=== PATIENT | female | born 1960 | race Caucasian/White ===

== ENCOUNTER 2019-12-14 11:00 | Outpatient (CLI) | payer MEDICAID, SELFPAY ==
--- NOTE | 2019-12-14 11:09 | USCV_ITS ---
Krista Rutherford Age: 59 Gender: F : 1960 Exam Date: 12/14/2019 11:28 Ordering Phys: Jamie Kendall Technologist: Lloyd Renae [place] [facility] [place]: HX OF RT LEG DVT HISTORY: Patient has history of. DVT. PROCEDURES: Venous duplex imaging was performed in only the right lower extremity. The following venous structures were evaluated: common femoral vein, profunda vein, proximal portion of the greater saphenous vein, superficial femoral vein, and the popliteal vein. In addition, the posterior tibial and peroneal trunk were evaluated. On the right side, the common femoral, superficial femoral, profunda femoral, popliteal, posterior tibial, greater saphenous veins and the peroneal trunk were identified and interrogated in the standard fashion. These veins were found to be easily compressible with spontaneous blood flow. No evidence of insufficiency or thrombus noted. FINDINGS: Normal 2-D Doppler and augmentation and compressibility throughout the lower extremity venous structures. Additional imaging through the proximal calf veins also reveals no thrombus. Limited evaluation of the greater saphenous vein is patent with no thrombus.. CONCLUSIONS No evidence of right lower extremity DVT. Wes Costello MD (Electronically Signed) Final Date: 14 December 2019 17:14 S
== END 2019-12-14 11:01 | disposition home or self-care (01) ==
LOC: US 11:02
PROVIDERS: PCP Nurse Practitioner; Visit Provider Nurse Practitioner
DX: Z86.718 Personal history of other venous thrombosis and embolism (principal)
CPT/HCPCS: 93971

== ENCOUNTER 2023-08-14 12:08 | Emergency (ER) | payer MEDICAID, SELFPAY ==
[2023-08-14 12:28] VITALS: BP 176/111; PULSE 93; RESP 18; TEMP 36.6; O2SAT 99; BMI 47.5
--- NOTE | 2023-08-14 12:35 | XRR_ITS ---
PROCEDURE INFORMATION: Exam: XR Chest Exam date and time: 08/14/2023 12:53 PM Age: 63 years old Clinical indication: Shortness of breath TECHNIQUE: Imaging protocol: Radiologic exam of the chest. Views: 1 view. COMPARISON: No relevant prior studies available. FINDINGS: Lungs: Well-defined focal opacity in the lateral left middle lung field, measuring up to 1.4 cm. No focal consolidation. Pleural spaces: No large pleural effusion. No pneumothorax. Heart/Mediastinum: Cardiomediastinal silhouette is midline and normal in size. Bones/joints: No acute osseous findings. XR/XR chest 1V [id number] IMPRESSION: Well-defined focal opacity in the lateral left middle lung field, measuring up to 1.4 cm. This likely represents a calcified granuloma. Recommend nonemergent CT chest without contrast for further evaluation.
--- NOTE | 2023-08-14 12:36 | W.ED.SOB ---
HPI - SOB/Dyspnea General: Chief Complaint: Shortness of Breath/Dyspnea Stated Complaint: weakness, dizzy, nausea Time Seen by Provider: 08/14/23 12:16 History of Present Illness: HPI Narrative: 63-year-old female with a history of obesity, diabetes, hypertension and tobacco dependence who presents to the emergency room with weakness and shortness of breath. She says she has been sick for several weeks now. She started out with a cough and had some fevers initially. She was seen by her PCP and she said she got some shots including a B12 shot. She said she was told that she did not get better to come here. She says her cough is improved but she gets very short of breath when she tries to stand up or walk. She feels very weak all over. Nothing focal. No chest pain. No abdominal pain. No nausea or vomiting. Review of Systems Narrative: Constitutional symptoms: Negative except as documented in HPI. Skin symptoms: Negative except as documented in HPI. Eye symptoms: Negative except as documented in HPI. ENMT symptoms: Negative except as documented in HPI. Respiratory symptoms: Negative except as documented in HPI. Cardiovascular symptoms: Negative except as documented in HPI. Gastrointestinal symptoms: Negative except as documented in HPI. Genitourinary symptoms: Negative except as documented in HPI. Musculoskeletal symptoms: Negative except as documented in HPI. Neurologic symptoms: Negative except as documented in HPI. Psychiatric symptoms: Negative except as documented in HPI. Endocrine symptoms: Negative except as documented in HPI. Physical Exam Narrative: EXAM NARRATIVE: General: Alert, no acute distress. Skin: Warm, dry. Head: Normocephalic, atraumatic. Neck: Supple, trachea midline. Eye: Extraocular movements are intact. Ears, nose, mouth and throat: mucosa moist. Cardiovascular: Regular, Normal peripheral perfusion. Respiratory: Patient becomes quite thick With any exertion, some mild scattered wheeze, no increased work of breathing at rest, breath sounds are equal, Symmetrical chest wall expansion. Gastrointestinal: Soft, Nontender, Non distended, Normal bowel sounds. Musculoskeletal: Normal ROM, no deformity. Neurological: Alert and oriented, No focal neurological deficit observed. Psychiatric: Cooperative, appropriate mood & affect. Course Vital Signs: Vital signs: Vital Signs Temperature 97.9 F 08/14/23 12:28 Pulse Rate 101 H 08/14/23 13:01 Respiratory Rate 18 08/14/23 13:01 Blood Pressure 159/91 08/14/23 13:01 Pulse Oximetry 95 08/14/23 13:01 Oxygen Delivery Me thod Room Air 08/14/23 13:01 MDM - SOB/Dyspnea Medical Decision Making Medical decision making: Differential diagnosis including but not limited to and based on the above HPI, review of systems and physical exam: Pneumonia, viral upper respiratory illness, heart failure, undiagnosed COPD Orders to evaluate differential diagnosis: EKG, chest x-ray, flu and COVID swabs, basic lab work. proBNP. Troponin. Lab Review: Laboratory results were reviewed and interpreted by myself the emergency room physician. No leukocytosis. White count is 6. Hemoglobin is 15. BUN and creatinine are slightly elevated at 13 and 1 over her baseline. Her glucose is 514. This is being treated with fluids and insulin. Urinalysis shows UTI. She is being given Rocephin. Chest x-ray: Stable calcified nodule in the left lateral lung. No acute process. No infiltrate. No pneumothorax. No cardiomegaly. This was reviewed and interpreted by myself the ER physician. EKG: Time 1309 p.m. rate 86 normal sinus rhythm, nonspecific ST-T changes, no ectopy, normal WI & QRS intervals, This was reviewed and interpreted by myself the ER physician at 1315 p.m. Reexamination: Patient remained stable. She is in no acute distress. No increased work of breathing while at rest. Believe her weakness is probably secondary to hyperglycemia, dehydration and a urinary tract infection. Multifactorial. Lab Data 08/14/23 12:50 08/14/23 12:50 Labs/Radiology: Radiology Impressions Chest X-Ray 08/14/23 12:35 IMPRESSION: Well-defined focal opacity in the lateral left middle lung field, measuring up to 1.4 cm. This likely represents a calcified granuloma. Recommend nonemergent CT chest without contrast for further evaluation. Laboratory Results WBC 6.20 10^3/uL (3.29-11.43) 08/14/23 12:50 RBC 4.93 10^6/uL (3.85-5.65) 08/14/23 12:50 Hgb 15.60 g/dL (11.27-16.99) 08/14/23 12:50 Hct 47.4 % (36-47) H 08/14/23 12:50 MCV 96.1 fl (85-98) 08/14/23 12:50 MCH 31.6 pg (27-33) 08/14/23 12:50 MCHC 32.9 g/dL (30-55) 08/14/23 12:50 RDW 14.9 % (12.1-15.1) 08/14/23 12:50 Plt Count 132 10^3/cmm (157-399) L 08/14/23 12:50 MPV 11.6 fL (7.4-10.4) H 08/14/23 12:50 Neut % (Auto) 73.0 % 08/14/23 12:50 Lymph % (Auto) 15.6 % 08/14/23 12:50 [place] % (Auto) 9.0 % 08/14/23 12:50 Eos % (Auto) 0.0 % 08/14/23 12:50 Baso % (Auto) 0.8 % 08/14/23 12:50 Neut # (Auto) 4.52 10^3/uL (1.8-7.7) 08/14/23 12:50 Lymph # (Auto) 1.0 10^3/uL (0.8-4.8) 08/14/23 12:50 [place] # (Auto) 0.6 10^3/uL (0.2-0.9) 08/14/23 12:50 Eos # (Auto) 0.0 10^3/uL (0.0-0.8) 08/14/23 12:50 Baso # (Auto) 0.1 10^3/uL (0.0-0.1) 08/14/23 12:50 Nucleated RBC % (auto) 0 % 08/14/23 12:50 Nucleated RBCs # 0.0 /100WBC 08/14/23 12:50 Sodium 131 mmol/L (136-145) L 08/14/23 12:50 Potassium 4.8 mmol/L (3.5-5.1) 08/14/23 12:50 Chloride 89 mmol/L (98-107) L 08/14/23 12:50 Carbon Dioxide 11 mmol/L (22-29) L 08/14/23 12:50 Anion Gap 35.8 (5-19) H 08/14/23 12:50 BUN 13 mg/dL (8-23) 08/14/23 12:50 Creatinine 1.0 mg/dL (0.5-0.9) H 08/14/23 12:50 GFR Calculation 56.2 mL/min (90-130) L 08/14/23 12:50 Glucose 514 mg/dL (65-115) H* 08/14/23 12:50 Calculated Osmolality 295 mOsm/kg (285-295) 08/14/23 12:50 Lactic Acid 1.7 mmol/L (0.5-2.2) 08/14/23 12:50 Calcium 9.5 mg/dL (8.5-10.5) 08/14/23 12:50 Total Bilirubin 0.3 mg/dL (0.15-1.2) 08/14/23 12:50 AST 9 U/L (0-32) 08/14/23 12:50 ALT 12 U/L (0-33) 08/14/23 12:50 Alkaline Phosphatase 120 U/L (35-105) H 08/14/23 12:50 Troponin T Baseline 23 ng/L (0-10) H 08/14/23 12:50 C-Reactive Protein 5.8 mg/L (0.0-4.9) H 08/14/23 12:50 NT-Pro-B Natriuret Pep 124 pg/mL (0-125) 08/14/23 12:50 Total Protein 6.8 g/dL (6.6-8.7) 08/14/23 12:50 Albumin 3.6 g/dL (3.5-5.2) 08/14/23 12:50 Globulin 3.2 g/dL (1.3-4.6) 08/14/23 12:50 Procalcitonin 0.05 ng/mL (0-0.5) 08/14/23 12:50 Urine Color Straw (Yellow) 08/14/23 14:10 Urine Appearance Clear (CLEAR) 08/14/23 14:10 Urine pH 5 (5-7) 08/14/23 14:10 Ur Specific [place] 1.010 (1.005-1.030) 08/14/23 14:10 Urine Protein 1+ (Negative) H 08/14/23 14:10 Urine Glucose (UA) 4+ (Normal) H 08/14/23 14:10 Urine Ketones 3+ (Negative) H 08/14/23 14:10 Urine Blood 2+ (Negative) H 08/14/23 14:10 Urine Nitrate Negative (Negative) 08/14/23 14:10 Urine Bilirubin Neg (Negative) 08/14/23 14:10 Urine Urobilinogen Norm mg/dL (Negative) 08/14/23 14:10 Ur Leukocyte Esterase Trace (Negative) H 08/14/23 14:10 Urine RBC 5-10 /hpf (0-2) H 08/14/23 14:10 Urine WBC 15-25 /hpf (0-5) H 08/14/23 14:10 Ur Squamous Epith Cells 5-10 /hpf (0-5) H 08/14/23 14:10 Amorphous Sediment Not Reportable 08/14/23 14:10 Urine Bacteria Trace /hpf (NONE) 08/14/23 14:10 Influenza Type A Ag negative (Negative) 08/14/23 12:55 Influenza Type B Ag negative (Negative) 08/14/23 12:55 SARS-CoV-2 Ag (Rapid) negative (Negative) 08/14/23 12:55 All radiology interpretation(s) finalized by discharge Other Data - 1 L normal saline bolus. -10 units IV insulin. -1 g IV Rocephin. - Discharged home - Discussed findings and plan with patient. Answered any questions. - All laboratory values were reviewed and interpreted personally by myself, the ER physician - All imaging was reviewed and interpreted personally by myself, the ER physician. - Evaluation and treatment of this problem were appropriate in the emergency setting Discharge Plan Discharge Patient Disposition: Home Clinical Impression: Urinary tract infection, Dehydration, Hyperglycemia Condition: Stable Prescriptions: New cefdinir 300 mg capsule 300 mg PO BID 10 Days Qty: 20 0RF No Action celecoxib 200 mg capsule 200 mg PO DAILY PRN (Reason: INFLAMMATION OR PAIN) pioglitazone 15 mg tablet 15 mg PO DAILY metformin 500 mg tablet 500 mg PO BID lisinopril 10 mg tablet 10 mg PO DAILY gabapentin 100 mg capsule 100 mg PO TID Novolog Mix 70-30FlexPen U-100 100 unit/mL (70-30) insulin pen See Rx Instructions .ROUTE .COMPLEX Rx Instructions: Take 30 units subcutaneously in the morning and 25 units in the evening at dinner. rosuvastatin 40 mg tablet 40 mg PO DAILY fenofibrate nanocrystallized 145 mg tablet 145 mg PO DAILY Lantus Solostar U-100 Insulin 100 unit/mL (3 mL) insulin pen 120 unit SUBCUT BEDTIME Eliquis 5 mg tablet 5 mg PO BID Discharge Orders: Discharge ED (Routine); Ordered 08/14/23 Ordered By: Monie Elizondo Referrals: Jamie Kendall, MERCHANDISE PLANNER [Primary Care Provider] - Patient Instructions: Urinary Tract Infection in Women (DC), Opioid Safety, Pain Management Coding Level of Care Code ED [employer] [facility] Gunsmith for Marta Alvarez
--- NOTE | 2023-08-14 12:48 | ECG_ITS ---
[facility] Test Date: 2023-08-14 Pat Name: Krista Rutherford Department: Room: Gender: Female Activity Specialist: : 1960 Requested By: Monie Lloyd Order Number: [id number] Ish MD: Sixto Flores M.D. Measurements Intervals [place] Rate: 86 P: 44 OR: 119 QRS: 41 QRSD: 76 T: 0 QT: 302 QTc: 363 Interpretive Statements SINUS RHYTHM WITH SINUS ARRHYTHMIA WITH SHORT OR INTERVAL NONSPECIFIC ST & T-WAVE ABNORMALITY No previous ECG available for comparison Electronically Signed On 08-14-2023 18:03:32 HAND CELL TUBER by Sixto Flores M.D. [email or web address].[email or web address]/store/OM/[id number]
[2023-08-14 13:01] VITALS: BP 159/91; PULSE 101; RESP 18; O2SAT 95
[2023-08-14 13:21] LABS: Basophils # 0.1 10^3/uL (0.0-0.1); Basophils % 0.8 %; Hematocrit 47.4 % (36-47); Lymphocytes % 15.6 %; Mean Corpuscular HGB Conc 32.9 g/dL (30-55); Mean Corpuscular Hemoglobin 31.6 pg (27-33); Mean Corpuscular Volume 96.1 fl (85-98); Mean Platelet Volume 11.6 fL (7.4-10.4); Monocytes # 0.6 10^3/uL (0.2-0.9); Neutrophils # 4.52 10^3/uL (1.8-7.7); Nucleated Red Blood Cells % 0 %; Platelet Count 132 10^3/cmm (157-399); Red Blood Count 4.93 10^6/uL (3.85-5.65); Red Cell Distribution Width 14.9 % (12.1-15.1)
[2023-08-14 13:40] LABS: Influenza A by IFA negative (Negative); Influenza B by IFA negative (Negative)
[2023-08-14 13:41] LABS: Lactic Sepsis W/Reflex 1.7 mmol/L (0.5-2.2)
[2023-08-14 13:41] LABS: SARS Covid-2 Antigen negative (Negative)
[2023-08-14 13:45] LABS: Troponin(5th) Baseline 23 ng/L (0-10)
[2023-08-14 13:55] LABS: NT Pro B Type Natriuretic Pept 124 pg/mL (0-125); Procalcitonin 0.05 ng/mL (0-0.5)
[2023-08-14 14:07] LABS: Alanine Aminotransferase 12 U/L (0-33); Albumin Level 3.6 g/dL (3.5-5.2); Alkaline Phosphatase 120 U/L (35-105); Anion Gap 35.8 (5-19); Aspartate Amino Transferase 9 U/L (0-32); Blood Urea Nitrogen 13 mg/dL (8-23); C Reactive Protein 5.8 mg/L (0.0-4.9); Calcium 9.5 mg/dL (8.5-10.5); Carbon Dioxide 11 mmol/L (22-29); Chloride 89 mmol/L (98-107); Globulin 3.2 g/dL (1.3-4.6); Glomerular Filtration Rate 56.2 mL/min (90-130); Osmolality Calculated 295 mOsm/kg (285-295); Potassium 4.8 mmol/L (3.5-5.1); Sodium 131 mmol/L (136-145); Total Bilirubin 0.3 mg/dL (0.15-1.2); Total Protein 6.8 g/dL (6.6-8.7)
[2023-08-14 14:11] LABS: Glucose 514 mg/dL (65-115)
[2023-08-14 14:28] LABS: Protein Urine 1+ (Negative); Urine Appearance Clear (CLEAR); Urine Color Straw (Yellow); pH Urine 5 (5-7)
[2023-08-14 14:29] LABS: Add Urine Culture? Yes; Bacteria Urine TRACE /hpf; Bilirubin Urine Neg (Negative); Blood Urine 2+ (Negative); Glucose Urine UA 4+ (Normal); Ketones Urine 3+ (Negative); Leukocyte Esterase Urine Trace (Negative); Nitrate Urine Negative (Negative); Urobilinogen Urine Norm (Negative); WBC Urine 15-25 /hpf (0-5)
[2023-08-14] MEDS: cefTRIAXone 1,000 MG in sodium chloride 0.9% (plus) 50 ML 100 MG IV (14:50)
[2023-08-14] MEDS: insulin regular-human 100 units/1 mL 10 UNIT IVP (14:50)
[2023-08-14] MEDS: sodium chloride 0.9% 1,000 ML 999 ML IV (14:50)
[2023-08-14 16:04] LABS: Troponin 5 2HR 22.93 ng/L (0-10)
[2023-08-14 16:05] LABS: Troponin 5 2HR Delta -0.07 ABS# (0-10)
== END 2023-08-14 15:51 | disposition home or self-care (01) ==
PROVIDERS: Emergency Provider Emergency Medicine; PCP Nurse Practitioner
DX: N39.0 Urinary tract infection, site not specified (principal); E86.0 Dehydration; E11.65 Type 2 diabetes mellitus with hyperglycemia; Z79.01 Long term (current) use of anticoagulants; Z79.4 Long term (current) use of insulin; Z79.84 Long term (current) use of oral hypoglycemic drugs; I10 Essential (primary) hypertension; F17.200 Nicotine dependence, unspecified, uncomplicated; Z11.52 Encounter for screening for COVID-19
CPT/HCPCS: 36415; 71045; 80053; 81001; 83605; 83880; 84145; 84484; 85025; 86140; 87040; 87086; 87426; 87804; 93005; 96365; 96375; 99285; J0696; J1815; J7030

== ENCOUNTER 2023-08-17 17:39 | Inpatient (IN) | payer MEDICAID, SELFPAY ==
[2023-08-17] VITALS (54 sets, daily range): BP systolic 103–167; BP diastolic 62–143; PULSE 107–111; RESP 17–22; TEMP 35.8–36.8; O2SAT 96–99; BMI 37.7
--- NOTE | 2023-08-17 17:50 | XRR_ITS ---
PROCEDURE INFORMATION: Exam: XR Chest Exam date and time: 08/17/2023 6:25 PM Age: 63 years old Clinical indication: Other: AMS TECHNIQUE: Imaging protocol: Radiologic exam of the chest. Views: 1 view. COMPARISON: CR (CHEST, ) 08/14/2023 12:53 PM FINDINGS: Lungs: There is a stable calcified granuloma overlying the left lateral mid lung zone. No consolidation is identified. There is a stable mild interstitial prominence which may be in part related to artifact. Pleural spaces: Unremarkable. No pleural effusion. No pneumothorax. Heart/Mediastinum: Unremarkable. No cardiomegaly. Bones/joints: Unremarkable. XR/XR chest 1V portable [id number] IMPRESSION: No acute cardiopulmonary disease.
--- NOTE | 2023-08-17 17:52 | ED_ITS ---
HPI - Altered Mental Status 2 General: Chief Complaint: Altered Mental Status Stated Complaint: AMS UTI Time Seen by Provider: 08/17/23 17:52 History of Present Illness: 63-year-old female presents to the emerg ency department with altered mental status she is accompanied by her family members and they state that they called the ambulance because she was very difficult to arouse her last known well time was yesterday at approximately 7 PM. Patient was hypoxic per EMS and placed on 4 L of supplemental oxygen. Per the family members they state that she has no history of home oxygen requirement. She is a diabetic and does appear to be breathing very fast. On review of the patient's medical records it does appear that she was seen here in the ER on 08/14/[address] Morocho and treated for dehydration and shortness of breath at that time. Given the patient's worsening medical condition today she is unable to provide any history of present illness. The family members state that she was seen by her primary care provider and had received some type of shots including a B12 shot and was advised by her primary care provider that if she did not get better to come to the emergency department which was documented on 08/14/2023. Review of Systems 2 General: Reports: ROS unobtainable due to medical condition and ROS unobtainable due to mental status Physical Exam 2 Narrative: Constitutional: the patient appears acutely ill, morbidly obese, alert alert only to person. Responsive to noxious stimuli. Head, eyes, ears, nose, mouth, throat: Normocephalic, atraumatic. Pupils-equal, round, reactive to light. No scleral icterus. Normal-appearing external ears. Normal appearing nasal turbinates, no drainage. No obvious oral lesions, posterior oropharynx without erythema or exudates. Neck: Supple, trachea is midline, no lymphadenopathy, no jugular venous distension, thyromegaly, or carotid bruits. Carotid upstrokes are brisk bilaterally. Lungs: Tachypneic, decreased bilaterally in the bases, the remainder of the lung vasquez are clear symmetrical rise and fall of chest, Cardiac: Sinus tachycardia with PACs noted., positive S1, S2. No murmurs, rubs or gallops that I can appreciate, brawny edema Abdomen: Soft, non-tender to palpation, normal active bowel sounds to all quadrants. No palpable masses, no organomegaly and abdominal bruits. Extremities: 2+ pulses in the upper extremities that are equal bilaterally, 2+ pulses in the lower extremities that are equal bilaterally. Brawny edema to the lower extremities moves all extremities well, sensation to all extremities are noted. Skin: Warm, dry, intact. Course 2 Vital Signs: Vital signs: Vital Signs Temperature 98.2 F 08/17/23 17:56 Pulse Rate 109 H 08/17/23 19:26 Respiratory Rate 17 08/17/23 19:26 Blood Pressure 125/96 08/17/23 20:30 Pulse Oximetry 98 08/17/23 20:30 Oxygen Delivery Me thod Room Air 08/17/23 19:26 Oxygen Flow Rate 4 08/17/23 17:56 MDM - Altered Mental Status Medical Decision Making Physical exam completed and documented, I will obtain POC glucose check and treat accordingly. I will obtain a chest x-ray and if indicated a CT scan of the head without contrast to evaluate for intracranial hemorrhage I have reviewed previous and pertinent medical records for assist in obtaining benefical medical information to improved the care and treatment of the patient. I have obtained a CBC and CMP as well as procalcitonin and lactic acid for concerns of infectious etiology [id number] glucose did demonstrate elevated blood glucose and her serum ketones are positive indicating diabetic ketoacidosis she does have a significant anion gap I will provide a bicarbonate drip as well as insulin push and insulin drip for her DKA. I have contacted the hospitalist physician for admission to the intensive care unit for the patient. I discussed the plan of care with the patient's son as her was not in the room and the family were in agreement with the plan of care. Medical Records I reviewed the patient's medical records. Lab Data I reviewed the patient's lab results. 08/17/23 18:23 08/17/23 18:53 Radiology Impressions Chest X-Ray 08/17/23 17:50 IMPRESSION: No acute cardiopulmonary disease. Head CT 08/17/23 19:01 IMPRESSION: Patchy deep white matter hypodensities are nonspecific though typical of small vessel chronic ischemic disease. Laboratory Results WBC 7.78 10^3/uL (3.29-11.43) 08/17/23 18:23 RBC 5.06 10^6/uL (3.85-5.65) 08/17/23 18:23 Hgb 16.20 g/dL (11.27-16.99) 08/17/23 18: Hct 54.3 % (36-47) H 08/17/23 18: MCV 107.3 fl (85-98) H 08/17/23 18:23 MCH 32.0 pg (27-33) 08/17/23 18: MCHC 29.8 g/dL (30-55) L 08/17/23 18: RDW 15.4 % (12.1-15.1) H 08/17/23 18: Plt Count 14 10^3/cmm (157-399) L* 08/17/23 18: MPV Not Reportable 08/17/23 18: Neut % (Auto) 81.3 % 08/17/23 18: Lymph % (Auto) 6.3 % 08/17/23 18: [place] % (Auto) 8.2 % 08/17/23 18: Eos % (Auto) 0.0 % 08/17/23 18: Baso % (Auto) 0.9 % 08/17/23 18: Neut # (Auto) 6.32 10^3/uL (1.8-7.7) 08/17/23 18: Lymph # (Auto) 0.5 10^3/uL (0.8-4.8) L 08/17/23 18: [place] # (Auto) 0.6 10^3/uL (0.2-0.9) 08/17/23 18: Eos # (Auto) 0.0 10^3/uL (0.0-0.8) 08/17/23 18: Baso # (Auto) 0.1 10^3/uL (0.0-0.1) 08/17/23: Nucleated RBC % (auto) 0.3 % 08/17/23: Nucleated RBCs # 0.0 /100WBC 08/17/23 18: Specimen Type Arterial 08/17/23 19:21 Sample Site Brachial, right 08/17/23 19:21 ABG pH 7.09 (7.35-7.45) L* 08/17/23 19: ABG pCO2 16.3 mmHg (35-45) L* 08/17/23 19:21 ABG pO2 112.0 mmHg (80.0-100.0) H 08/17/23 19:21 ABG HCO3 4.9 mmol/L (22-26) L 08/17/23 19:21 ABG O2 Saturation 98.4 08/17/23 19:21 ABG Base Excess -22.7 mmol/L (-2.0-2.0) L 08/17/23 19:21 Darci Test N/a 08/17/23 19:21 A-a O2 Gradient 1.7 mmHg (5-10) L 08/17/23 19:21 Hematocrit 53.0 % (37-47) H 08/17/23 19:21 Hgb O2 Saturation 97.0 % (95-100) 08/17/23 19:21 Carboxyhemoglobin 0.9 %THgb (0.4-20.1) 08/17/23 19:21 Methemoglobin 0.5 % (0.4-1.5) 08/17/23 19:21 Total Hemoglobin 17.3 g/dL (12-16) H 08/17/23 19:21 Sodium 145.0 mmol/L (131-143) H 08/17/23 19:21 Potassium 4.8 mmol/L (3.5-5.0) 08/17/23 19:21 Glucose 568.0 mg/dL (70-115) H 08/17/23 19:21 Ionized Calcium 1.6 mmol/L (1.1-1.4) H 08/17/23 19:21 O2 Delivery Device Room air 08/17/23 19:21 Grocery Store Manager ID [email or web address] 08/17/23 19:21 Sodium 140 mmol/L (136-145) 08/17/23 18:53 Potassium 4.7 mmol/L (3.5-5.1) 08/17/23 18:53 Chloride 101 mmol/L (98-107) 08/17/23 18:53 Carbon Dioxide 8 mmol/L (22-29) L* 08/17/23 18:53 Anion Gap 35.7 (5-19) H 08/17/23 18:53 BUN 40 mg/dL (8-23) H 08/17/23 18:53 Creatinine 1.7 mg/dL (0.5-0.9) H 08/17/23 18:53 GFR Calculation 30.5 mL/min (90-130) L 08/17/23 18:53 Glucose 562 mg/dL (65-115) H* 08/17/23 18:53 Calculated Osmolality 326 mOsm/kg (285-295) H 08/17/23 18:53 Lactic Acid 1.4 mmol/L (0.5-2.2) 08/17/23 18:53 Calcium 10.1 mg/dL (8.5-10.5) 08/17/23 18:53 Magnesium 2.8 mg/dL (1.7-2.3) H 08/17/23 18:53 Total Bilirubin 0.2 mg/dL (0.15-1.2) 08/17/23 18:53 AST 11 U/L (0-32) 08/17/23 18:53 ALT 14 U/L (0-33) 08/17/23 18:53 Alkaline Phosphatase 111 U/L (35-105) H 08/17/23 18:53 Troponin T Baseline 34 ng/L (0-10) H 08/17/23 18:53 Troponin T 120 Minute Cancelled 08/17/23 20:51 Delta Troponin T Cancelled 08/17/23 20:51 Total Protein 6.4 g/dL (6.6-8.7) L 08/17/23 18:53 Albumin 3.4 g/dL (3.5-5.2) L 08/17/23 18:53 Globulin 3.0 g/dL (1.3-4.6) 08/17/23 18:53 Procalcitonin 0.10 ng/mL (0-0.5) 08/17/23 18:53 Urine Color Yellow (Yellow) 08/17/23 18:41 Urine Appearance Clear (CLEAR) 08/17/23 18:41 Urine pH 6 (5-7) 08/17/23 18:41 Ur Specific [place] 1.015 (1.005-1.030) 08/17/23 18:41 Urine Protein 1+ (Negative) H 08/17/23 18:41 Urine Glucose (UA) 4+ (Normal) H 08/17/23 18:41 Urine Ketones 3+ (Negative) H 08/17/23 18:41 Urine Blood 3+ (Negative) H 08/17/23 18:41 Urine Nitrate Negative (Negative) 08/17/23 18:41 Urine Bilirubin Neg (Negative) 08/17/23 18:41 Urine Urobilinogen Norm mg/dL (Negative) 08/17/23 18:41 Ur Leukocyte Esterase Negative (Negative) 08/17/23 18:41 Urine RBC 0-4 /hpf (0-2) H 08/17/23 18:41 Urine WBC 0-4 /hpf (0-5) H 08/17/23 18:41 Ur Squamous Epith Cells 0-4 /hpf (0-5) H 08/17/23 18:41 Amorphous Sediment Not Reportable 08/17/23 18:41 Urine Bacteria None /hpf (NONE) 08/17/23 18:41 Urine Mucus None /hpf 08/17/23 18:41 Serum Ketones Positive (Negative) H 08/17/23 18:53 All radiology interpretation(s) finalized by discharge EKG Data EKG 1: Interpretation: Twelve-lead EKG obtained at 1755 and reviewed at 1802 demonstrates sinus tachycardia with PACs. Ventricular rate of 109, QRS duration 77 MS interval 125 QT 272 QTc 336 at present there is no ST elevation or depression to demonstrate acute ischemia or infarction. Critical Care Time 2 Critical Care Time: Critical Care Time: Yes Total Critical Care Time: 45 Attestation: The patients was emergently evaluated as this patient's presentation and case had a high probability of a clinically significant, sudden, or life threatening deterioration of this patient's initial critical presentation or condition which required my full and direct attention, intervention and personal management. Discharge Plan Discharge Patient Disposition: Admitted As Inpatient Clinical Impression: Acute alteration in mental status, Diabetic ketoacidosis associated with type 1 diabetes mellitus Condition: Stable Prescriptions: No Action celecoxib 200 mg capsule 200 mg PO DAILY PRN (Reason: INFLAMMATION OR PAIN) pioglitazone 15 mg tablet 15 mg PO DAILY metformin 500 mg tablet 500 mg PO BID lisinopril 10 mg tablet 10 mg PO DAILY gabapentin 100 mg capsule 100 mg PO TID Novolog Mix 70-30FlexPen U-100 100 unit/mL (70-30) insulin pen See Rx Instructions .ROUTE .COMPLEX Rx Instructions: Take 30 units subcutaneously in the morning and 25 units in the evening at dinner. rosuvastatin 40 mg tablet 40 mg PO DAILY fenofibrate nanocrystallized 145 mg tablet 145 mg PO DAILY Lantus Solostar U-100 Insulin 100 unit/mL (3 mL) insulin pen 120 unit SUBCUT BEDTIME Eliquis 5 mg tablet 5 mg PO BID cefdinir 300 mg capsule 300 mg PO BID 10 Days Qty: 20 0RF Referrals: Jamie Kendall, LEAD JANITOR [Primary Care Provider] - Patient Instructions: Altered Mental Status (ED) Coding Level of Care Code ED Line Maintainer for Marta Alvarez
[2023-08-17 18:32] LABS: Basophils # 0.1 10^3/uL (0.0-0.1); Basophils % 0.9 %; Hematocrit 54.3 % (36-47); Lymphocytes # 0.5 10^3/uL (0.8-4.8); Lymphocytes % 6.3 %; Mean Corpuscular HGB Conc 29.8 g/dL (30-55); Mean Corpuscular Volume 107.3 fl (85-98); Monocytes # 0.6 10^3/uL (0.2-0.9); Monocytes % 8.2 %; Neutrophils # 6.32 10^3/uL (1.8-7.7); Neutrophils % 81.3 %; Nucleated Red Blood Cells % 0.3 %; Red Blood Count 5.06 10^6/uL (3.85-5.65); Red Cell Distribution Width 15.4 % (12.1-15.1); White Blood Count 7.78 10^3/uL (3.29-11.43)
[2023-08-17 18:35] LABS: Platelet Count 14 10^3/cmm (157-399)
[2023-08-17 18:37] LABS: Slide Review Slide Review Perform
[2023-08-17 18:50] LABS: Urine Appearance Clear (CLEAR); Urine Color Yellow (Yellow)
[2023-08-17 18:51] LABS: Add Urine Microscopic? YES; Bilirubin Urine Neg (Negative); Blood Urine 3+ (Negative); Glucose Urine UA 4+ (Normal); Ketones Urine 3+ (Negative); Leukocyte Esterase Urine Negative (Negative); Nitrate Urine Negative (Negative); Protein Urine 1+ (Negative); Specific Gravity, Urine 1.015 (1.005-1.030); Urobilinogen Urine Norm (Negative); pH Urine 6 (5-7)
--- NOTE | 2023-08-17 18:59 | ECG_ITS ---
[facility] Test Date: 2023-08-17 Pat Name: Krista Rutherford Department: Room: Gender: Female Director Of Research And Development: : 1960 Requested By: Bill Quick Order Number: [id number] Ish MD: Omar Wyman M.D. Measurements Intervals [place] Rate: 109 P: 56 SC: 125 QRS: 35 QRSD: 77 T: 206 QT: 272 QTc: 368 Interpretive Statements SINUS TACHYCARDIA WITH OCCASIONAL SUPRAVENTRICULAR PREMATURE COMPLEXES POSSIBLE RIGHT ATRIAL ENLARGEMENT [0.25mV P-WAVE] LOW QRS VOLTAGE IN PRECORDIAL LEADS [QRS DEFLECTION < 1.0 mV IN CHEST LEADS] ST DEVIATION AND MODERATE T-WAVE ABNORMALITY, CONSIDER INFERIOR ISCHEMIA [-0.1+ mV T-WAVE IN II/aVF] Compared to ECG 08/14/2023 13:09:04 Low QRS voltage now present Possible ischemia now present Sinus rhythm no longer present Sinus arrhythmia no longer present Short SC interval no longer present T-wave abnormality still present Electronically Signed On 08-18-2023 10:50:50 RECORDS MANAGEMENT SPECIALIST by Omar Wyman M.D. [email or web address]store/[id number] [email or web address]
--- NOTE | 2023-08-17 19:01 | CTR_ITS ---
PROCEDURE INFORMATION: Exam: CT Head Without Contrast Exam date and time: 08/17/2023 7:44 PM Age: 63 years old Clinical indication: Altered mental status/memory loss; Additional info: AMS TECHNIQUE: Imaging protocol: Computed tomography of the head without contrast. Radiation optimization: All CT scans at this facility use at least one of these dose optimization techniques: automated exposure control; mA and/or kV adjustment per patient size (includes targeted exams where dose is matched to clinical indication); or iterative reconstruction. COMPARISON: No relevant prior studies available. RADIATION DOSE METRICS: Total DLP (mGy-cm): 1860 FINDINGS: Brain: There are [id number] deep white matter hypodensities which are nonspecific though typical of small vessel chronic ischemic disease. There is no intracranial hemorrhage. There is no significant mass effect. There may be tiny lacunar infarcts in the basal ganglia. Impression new no definitive evidence of acute intracranial pathology. Cerebral ventricles: No ventriculomegaly. Paranasal sinuses: Visualized sinuses are unremarkable. No fluid levels. Mastoid air cells: Visualized mastoid air cells are well aerated. Bones/joints: Unremarkable. No acute fracture. Soft tissues: Unremarkable. CT/CT head wo con* [id number] IMPRESSION: Patchy deep white matter hypodensities are nonspecific though typical of small vessel chronic ischemic disease.
[2023-08-17 19:16] LABS: Alanine Aminotransferase 14 U/L (0-33); Albumin Level 3.4 g/dL (3.5-5.2); Alkaline Phosphatase 111 U/L (35-105); Aspartate Amino Transferase 11 U/L (0-32); Blood Urea Nitrogen 40 mg/dL (8-23); Calcium 10.1 mg/dL (8.5-10.5); Chloride 101 mmol/L (98-107); Glomerular Filtration Rate 30.5 mL/min (90-130); Magnesium 2.8 mg/dL (1.7-2.3); Osmolality Calculated 326 mOsm/kg (285-295); Sodium 140 mmol/L (136-145); Total Bilirubin 0.2 mg/dL (0.15-1.2); Total Protein 6.4 g/dL (6.6-8.7)
[2023-08-17 19:21] LABS: Lactic Sepsis W/Reflex 1.4 mmol/L (0.5-2.2)
[2023-08-17 19:25] LABS: Anion Gap 35.7 (5-19); Potassium 4.7 mmol/L (3.5-5.1)
[2023-08-17 19:27] LABS: Add Urine Culture? No; RBC Urine 0-4 /hpf (0-2); Squamous Epithelial Cell Urine 0-4 /hpf (0-5); WBC Urine 0-4 /hpf (0-5)
[2023-08-17 19:27] LABS: Ketone (Acetest) Serum Positive (Negative)
[2023-08-17 19:32] LABS: Alveolar-Arterial Oxygen Gradi 1.7 mmHg (5-10); Base Excess ABG -22.7 mmol/L (-2.0-2.0); Blood Gas Sample Type Arterial; Carboxyhemoglobin 0.9 %THgb (0.4-20.1); HCO3 ABG 4.9 mmol/L (22-26); Ionized Calcium Level - ABG 1.6 mmol/L (1.1-1.4); Methemoglobin 0.5 % (0.4-1.5); Oxygen Saturation ABG 98.4; Potassium Level - ABG 4.8 mmol/L (3.5-5.0); Total Hemoglobin 17.3 g/dL (12-16)
[2023-08-17 19:33] LABS: ABG PCO2 16.3 mmHg (35-45); ABG PH Result 7.09 (7.35-7.45); Blood Gas Sample Site Brachial, right; Oxygen Device ROOM AIR
[2023-08-17 19:33] LABS: Carbon Dioxide 8 mmol/L (22-29)
[2023-08-17 19:34] LABS: Glucose 562 mg/dL (65-115)
[2023-08-17 19:35] LABS: Troponin(5th) Baseline 34 ng/L (0-10)
[2023-08-17] MEDS: insulin regular-human 100 units/1 mL 10 UNIT IVP (19:56)
[2023-08-17] MEDS: sodium bicarbonate 8.4% 1 mEq/mL 50mL Syr 50 MEQ IVP (20:29)
[2023-08-17] MEDS: sodium bicarbonate 50 MEQ in sodium chloride 0.45% 1,000 ML 100 MEQ IV (20:44)
[2023-08-17] MEDS: insulin regular-human 250 UNIT in sodium chloride 0.9% 250 ML 11.6199999999999992 UNIT IV (21:15)
[2023-08-17 21:30] LABS: Glucose Point of Care 433 mg/dL (70-110)
[2023-08-17 21:30] LABS: Glucose Point of Care 500 mg/dL (70-110)
[2023-08-17 21:33] LABS: Troponin 5 2HR 32.71 ng/L (0-10)
[2023-08-17 21:38] LABS: Troponin 5 2HR Delta -1.29 ABS# (0-10)
[2023-08-17 22:19] LABS: Glucose Point of Care 418 mg/dL (70-110)
--- NOTE | 2023-08-17 23:03 | PC.NURSE ---
Patient arrived to unit. Marrero catheter in place. Patient has wet clothes which were removed. Patient appears unkept and not cleaned. Cleaned patient x3 assist. Patient cries out in pain when cleaning groins. Noted right groin to be raw. Placed interdry to bilateral groin. Back and sacrum without injury or redness at this time. Performed admission assessment. Spouse and son at bedside. Spouse stated, her blood sugar was real high at home and we gave her orange juice. Attempted to educate family on elevated blood sugars. Will require more in depth education.
[2023-08-17 23:05] LABS: Glucose Point of Care 423 mg/dL (70-110)
--- NOTE | 2023-08-17 23:34 | P.HP_ITS ---
Providers/Chief Complaint 2 Admitting Physician: Mariya Yoder MD Primary Care Provider: WALI Contreras Chief Complaint: AMS UTI History of Present Illness History is obtained mainly by talking to patient's daughter and (latter has poor medical literacy) were at bedside. Krista Rutherford is a 63 year old female with a past medical history of diabetes mellitus, hypertension, history of DVT, uncertain if she is still on anticoagulation for the same. She is brought today by family due to altered mental status. Family reports the patient has been ill for about the past month. She was initially diagnosed with COVID, and then influenza and then recently with a community-acquired pneumonia. She has received multiple doses of different antibiotics over the past month. Family is uncertain if she was diagnosed with COVID and influenza based on results of her nasal swab testing or based on clinical picture.. She did not receive any steroids as far as they are aware. She did receive IM antibiotics with her primary care provider during the course of the past month, however they do not know the names of the medications. She was brought to the emergency room on August 14, 2023 due to weakness and shortness of breath. She was diagnosed with community-acquired pneumonia based on chest x-ray showing opacity in the left lateral middle lung field and a UTI. She was discharged with prescription for cefdinir which patient has reportedly been taking. Her blood sugar was 514 with an anion gap of 35 on this day, per patient manages her own insulin and has been taking it regularly. She does not check her fingersticks at home regularly. As far as he is aware her blood sugar has been controlled. She has been drinking diet sodas and water at home. Starting Tuesday (today is Tuesday), her daughter noted subtle changes in mentation. When she spoke to her mother on the phone, she appeared to be somewhat confused and lethargic and it appears that her mentation has continued to worsen since then. Upon hospital arrival today patient is obtunded, at the time of my assessment she is only able to answer her name. She is unable to tell me her age, date of , whereabouts, current date etc. She is asking for water and is able to take a few steps independently. Labs today revealing hyperosmolar hyperglycemic state, new thrombocytopenia with platelet count at 14,000 which is new for the patient. She has no known history of thrombocytopenia. On August 14, 2023 her platelet count was normal. On her EKGs and telemetry monitoring she is noted to be in intermittent A-fib, family is uncertain if this is a known diagnosis for her. Per family she did not report any chest pain dyspnea palpitations or syncope. No vomiting. Poor appetite+. no recent fever. Review of Systems 2 General: Reports: ROS unobtainable due to medical condition and ROS unobtainable due to mental status Medications/Allergies Home Medications Medication Instructions Recorded Confirmed Last Taken Type apixaban 5 mg tablet (Eliquis) 5 mg PO BID 08/14/23 08/14/23 08/13/23 History cefdinir 300 mg capsule 300 mg PO BID 10 days #20 caps 08/14/23 Unknown Rx celecoxib 200 mg capsule 200 mg PO DAILY PRN INFLAMMATION 08/14/23 08/14/23 Unknown History OR PAIN fenofibrate nanocrystallized 145 145 mg PO DAILY 08/14/23 08/14/23 08/13/23 History mg tablet gabapentin 100 mg capsule 100 mg PO TID 08/14/23 08/14/23 08/13/23 History insulin aspar prot-insulin aspart See Rx Instructions .Route .COMPLEX 08/14/23 08/14/23 08/13/23 History 100 unit/mL (70-30) subcutaneous pen (Novolog Mix 70-30FlexPen U-100) insulin glargine 100 unit/mL (3 120 unit SUBCUT BEDTIME 08/14/23 08/14/23 08/13/23 History mL) subcutaneous pen (Lantus Solostar U-100 Insulin) lisinopril 10 mg tablet 10 mg PO DAILY 08/14/23 08/14/23 08/13/23 History metformin 500 mg tablet 500 mg PO BID 08/14/23 08/14/23 08/13/23 History pioglitazone 15 mg tablet 15 mg PO DAILY 08/14/23 08/14/23 08/13/23 History rosuvastatin 40 mg tablet 40 mg PO DAILY 08/14/23 08/14/23 08/13/23 History Allergies Allergy/AdvReac Type Severity Reaction Status Date / Time apixaban [From Eliquis] Allergy ALGY-Rash Verified 08/14/23 12:28 PFSH Acute 2 PFSH: Medical History (Updated 08/18/23 @ 04:18 by Mariya Yoder MD) Hypertension Diabetes Vitals/I&O/Wt Last Vital Signs Temp 98.2 F 08/17/23 17:56 Pulse 108 H 08/17/23 23:30 Resp 22 H 08/17/23 23:30 BP 125/89 08/17/23 23:30 Pulse Ox 98 08/17/23 23:30 O2 Del Method Room Air 08/17/23 23:08 O2 Flow Rate 4 08/17/23 17:56 08/17/23 08/17/23 08/18/23 14:59 22:59 06:59 Intake Total 19.940 / 19.940 1.364 / 21.304 Balance 19.940 / 19.940 1.364 / .304 Weight last 48 hrs Weight 84.686 kg Weight 84.686 kg Weight 117.934 kg Physical Exam 2 Narrative: General: ill appearing, confused, AO x1 HEENT: PERRLA, pupils bilaterally equal and reactive, pallors not present Chest: Normal vesicular breath sounds CVS: S1-S2 regular, no murmurs, no tachycardia Abdomen: Soft, nontender, no organomegaly, bowel sounds present Neuro: No focal deficits grossly moves all extremities laying in bed though not to commands. Extremities: B/L inguinal fold candidiasis Urinary Catheter Management: Marrero: Cath Placed During This Visit: yes Urinary Catheter Date of Insertion: 08/17/23 Urinary Catheter Time of Insertion: 16:35 Data 08/17/23 18:23 08/17/23 23:45 Micro: Microbiology 08/17/23 18:25 Blood Culture - Preliminary Blood SPECIMEN COLLECTED 08/17/23 18:23 Blood Culture - Preliminary Blood SPECIMEN COLLECTED Other data: Radiology Impressions Chest X-Ray 08/17/23 17:50 IMPRESSION: No acute cardiopulmonary disease. Head CT 08/17/23 19:01 IMPRESSION: Patchy deep white matter hypodensities are nonspecific though typical of small vessel chronic ischemic disease. Laboratory Results WBC 7.78 10^3/uL (3.29-11.43) 08/17/23 18:23 RBC 5.06 10^6/uL (3.85-5.65) 08/17/23 18:23 Hgb 16.20 g/dL (11.27-16.99) 08/17/23 18:23 Hct 54.3 % (36-47) H 08/17/23 18: MCV 107.3 fl (85-98) H 08/17/23 18: MCH 32.0 pg (27-33) 08/17/23 18: MCHC 29.8 g/dL (30-55) L 08/17/23 18: RDW 15.4 % (12.1-15.1) H 08/17/23 18: Plt Count 14 10^3/cmm (157-399) L* 08/17/23 18:23 MPV Not Reportable 08/17/23 18: Neut % (Auto) 81.3 % 08/17/23 18: Lymph % (Auto) 6.3 % 08/17/23 18: [place] % (Auto) 8.2 % 08/17/23 18: Eos % (Auto) 0.0 % 08/17/23 18: Baso % (Auto) 0.9 % 08/17/23 18: Neut # (Auto) 6.32 10^3/uL (1.8-7.7) 08/17/23 18: Lymph # (Auto) 0.5 10^3/uL (0.8-4.8) L 08/17/23 18: [place] # (Auto) 0.6 10^3/uL (0.2-0.9) 08/17/23 18: Eos # (Auto) 0.0 10^3/uL (0.0-0.8) 08/17/23 18: Baso # (Auto) 0.1 10^3/uL (0.0-0.1) 08/17/23 18: Nucleated RBC % (auto) 0.3 % 08/17/23 18: Nucleated RBCs # 0.0 /100WBC 08/17/23 18: Peripher Smr Path Cons Sent for review 08/17/23 23:45 PT 14.90 SECONDS (12.1-14.9) 08/17/23 23:45 INR 1.13 (0.8-1.2) 08/17/23 23:45 APTT 25.1 SECONDS (23.9-36.7) 08/17/23 23:45 Fibrinogen 332 mg/dL (174-498) 08/17/23 23:45 D-Dimer 1.63 ug/mLFEU (0-0.59) H 08/17/23 23:45 Specimen Type Arterial 08/17/23 19:21 Sample Site Brachial, right 08/17/23 19:21 ABG pH 7.09 (7.35-7.45) L* 08/17/23 19: ABG pCO2 16.3 mmHg (35-45) L* 08/17/23 19:21 ABG pO2 112.0 mmHg (80.0-100.0) H 08/17/23 19:21 ABG HCO3 4.9 mmol/L (22-26) L 08/17/23 19:21 ABG O2 Saturation 98.4 08/17/23 19:21 ABG Base Excess -22.7 mmol/L (-2.0-2.0) L 08/17/23 19:21 Darci Test N/a 08/17/23 19:21 A-a O2 Gradient 1.7 mmHg (5-10) L 08/17/23 19:21 Hematocrit 53.0 % (37-47) H 08/17/23 19:21 Hgb O2 Saturation 97.0 % (95-100) 08/17/23 19:21 Carboxyhemoglobin 0.9 %THgb (0.4-20.1) 08/17/23 19:21 Methemoglobin 0.5 % (0.4-1.5) 08/17/23 19:21 Total Hemoglobin 17.3 g/dL (12-16) H 08/17/23 19:21 Sodium 145.0 mmol/L (131-143) H 08/17/23 19:21 Potassium 4.8 mmol/L (3.5-5.0) 08/17/23 19:21 Glucose 568.0 mg/dL (70-115) H 08/17/23 19:21 Ionized Calcium 1.6 mmol/L (1.1-1.4) H 08/17/23 19:21 O2 Delivery Device Room air 08/17/23 19:21 Dust Collector Operator ID [email or web address] 08/17/23 19:21 Sodium 147 mmol/L (136-145) H 08/17/23 23:45 Potassium 3.2 mmol/L (3.5-5.1) L 08/17/23 23:45 Chloride 105 mmol/L (98-107) 08/17/23 23:45 Carbon Dioxide 13 mmol/L (22-29) L 08/17/23 23:45 Anion Gap 32.2 (5-19) H 08/17/23 23:45 BUN 41 mg/dL (8-23) H 08/17/23 23:45 Creatinine 1.7 mg/dL (0.5-0.9) H 08/17/23 23:45 GFR Calculation 30.5 mL/min (90-130) L 08/17/23 23:45 Glucose 266 mg/dL (65-115) H 08/17/23 23:45 POC Glucose 192 mg/dL (70-110) H 08/18/23 04:08 Calculated Osmolality 323 mOsm/kg (285-295) H 08/17/23 23:45 Lactic Acid 1.4 mmol/L (0.5-2.2) 08/17/23 18:53 Calcium 10.8 mg/dL (8.5-10.5) H 08/17/23 23:45 Magnesium 2.8 mg/dL (1.7-2.3) H 08/17/23 18:53 Total Bilirubin 0.2 mg/dL (0.15-1.2) 08/17/23 18:53 AST 11 U/L (0-32) 08/17/23 18:53 ALT 14 U/L (0-33) 08/17/23 18:53 Alkaline Phosphatase 111 U/L (35-105) H 08/17/23 18:53 Troponin T Baseline 34 ng/L (0-10) H 08/17/23 18:53 Troponin T 120 Minute 32.71 ng/L (0-10) H 08/17/23 21:07 Delta Troponin T -1.29 ABS# (0-10) L 08/17/23 21:07 Troponin T Hi Sens 6Hr 30.57 ng/L (0-10) H 08/17/23 23:45 Troponin T Hi Sens 6Hr Delta -3.43 ng/L (0-12) L 08/17/23 23:45 Total Protein 6.4 g/dL (6.6-8.7) L 08/17/23 18:53 Albumin 3.4 g/dL (3.5-5.2) L 08/17/23 18:53 Globulin 3.0 g/dL (1.3-4.6) 08/17/23 18:53 Procalcitonin 0.10 ng/mL (0-0.5) 08/17/23 18:53 Urine Color Yellow (Yellow) 08/17/23 18:41 Urine Appearance Clear (CLEAR) 08/17/23 18:41 Urine pH 6 (5-7) 08/17/23 18:41 Ur Specific [place] 1.015 (1.005-1.030) 08/17/23 18:41 Urine Protein 1+ (Negative) H 08/17/23 18:41 Urine Glucose (UA) 4+ (Normal) H 08/17/23 18:41 Urine Ketones 3+ (Negative) H 08/17/23 18:41 Urine Blood 3+ (Negative) H 08/17/23 18:41 Urine Nitrate Negative (Negative) 08/17/23 18:41 Urine Bilirubin Neg (Negative) 08/17/23 18:41 Urine Urobilinogen Norm mg/dL (Negative) 08/17/23 18:41 Ur Leukocyte Esterase Negative (Negative) 08/17/23 18:41 Urine RBC 0-4 /hpf (0-2) H 08/17/23 18:41 Urine WBC 0-4 /hpf (0-5) H 08/17/23 18:41 Ur Squamous Epith Cells 0-4 /hpf (0-5) H 08/17/23 18:41 Amorphous Sediment Not Reportable 08/17/23 18:41 Urine Bacteria None /hpf (NONE) 08/17/23 18:41 Urine Mucus None /hpf 08/17/23 18:41 Serum Ketones Positive (Negative) H 08/17/23 18:53 Hepatitis A IgM Ab Non-reactive (Nonreactive) 08/17/23 23:45 Hep Bs Antigen Non-reactive (Nonreactive) 08/17/23 23:45 Hep Bs Antibody < 3.5 (11.5-1000) L 08/17/23 23:45 Hep B Core Total Ab Non-reactive (Nonreactive) 08/17/23 23:45 Hepatitis C Antibody Non-reactive (Nonreactive) 08/17/23 23:45 HIV 1&2 Ab & HIV 1 Ag Non-reactive (Non-Reactiv) 08/17/23 23:45 HIV 1&2 Antibody Non-reactive (Non-Reactiv) 08/17/23 23:45 Blood Type O Positive 08/17/23 23:45 Rho(D) Type Rh positive 08/17/23 23:45 Antibody Screen Negative 08/17/23 23:45 A&P Assessment and plan (1) Diabetic keto-acidosis: Start patient on insulin drip as per DKA/HHS protocol with target blood sugars between 100-130 Currentlyon Bicarb infusion @ 100 cc/h, which we will continue We will switch to D5 NS once blood sugar less than 250. Monitor BMP every 4 hours. Once potassium less than 4 we will add 2supplemental potassium to IV fluids. Monitor saturations. Maintain over 90%. Transition to sliding scale and long-acting insulin once anion gap resolves. Check HbA1c Qualifiers: Diabetes mellitus type: type 2 Diabetes mellitus complication detail: w ith coma Qualified Code(s): E11.11 - Type 2 diabetes mellitus with ketoacidosis with coma (2) Acute alteration in mental status: Likely related to DKA and hyperosmolar state CT head negative for acute intracranial events (3) Thrombocytopenia: Unclear cause at this present Platelet count has fallen acutely from 132 to 14 today. Check DIC panel, peripheral smear, hepatitis C and HIV screen. Type and screen in case patient starts to develop bleeding manifestations. At this present time no gross bleeding identified. Hemoglobin is steady at 16.2. May be related to recent viral infections as reported per history. No leukocytosis, negative lactate , negative procalcitonin, stable hemodynamics, clear chest x-ray today, negative UA makes possibility of sepsis as a cause less likely. Blood cultures taken and pending. Monitor off antibiotics for now Uncertain which abx patient has taken recently except for Ceftriaxone which has been documented from Er visit on 08/14 and oral cefdinir. Potentially may be beta lactam related thrombocytopenia, however cannot be certain at this time. (4) Atrial fibrillation and flutter: Unknown if patient has has a past history of the same. On ER visit from August 14 she was noted to have sinus tachycardia with occasional PVCs. Patient's home medication list shows that patient was prescribed Eliquis at some point, however family states this was for DVT. Uncertain if patient is still taking anticoagulation or not. Rate is currently controlled. A-fib may be precipitated by current state of DKA, electrolyte shifts target potassium greater than 4, magnesium greater than 2 No anticoagulation to be initiated given severe thrombocytopenia. Plan Crural candidiasis: Nystatin powder for local application DVT prophylaxis: SCDs only. Anticoagulation contraindicated. Full code Attestations 2 Medical Necessity Statement*: Greater than 2 midnight stay is anticipated Critical Care Time: The high probability of a clinically significant, sudden or life threatening deterioration of the patient's [neurological,hematological, endocrine, respiratory] system(s) required my full and direct attention, intervention and personal management. The critical care time is as shown. This time is in addition to time spent performing any reported procedures but includes the following: [x] Data and vital sign review and interpretation [x] Patient assessment, examination and intervention [x] Documentation [x] Medication orders and management Critical Care Time (min): 60 Coding Level of Care Code Critical Care >/= 30 minutes Diagnoses Diabetic ketoacidosis with coma associated with type 2 diabetes mellitus E11.11 Diabetes mellitus type: type 2 Diabetes mellitus complication detail: with coma Acute alteration in mental status R41.82 Thrombocytopenia D69.6 Atrial fibrillation and flutter I48.91; I48.92
[2023-08-17 23:55] LABS: Reflex FDPQ test REFLEX FDP QUEST TES
[2023-08-18] VITALS (52 sets, daily range): BP systolic 100–170; BP diastolic 61–116; PULSE 77–132; RESP 15–30; TEMP 35.7–36.8; O2SAT 90–100
--- NOTE | 2023-08-18 | PC.NURSE ---
Verified order for Lovenox with Dr Yoder due to patient's platelet count is at 14. Received order to discontinue at this time.
[2023-08-18 00:13] LABS: INR 1.13 (0.8-1.2)
[2023-08-18 00:14] LABS: Anion Gap 32.2 (5-19); Blood Urea Nitrogen 41 mg/dL (8-23); Calcium 10.8 mg/dL (8.5-10.5); Carbon Dioxide 13 mmol/L (22-29); Chloride 105 mmol/L (98-107); Creatinine Clr Calc Pharmacy 45.8716; Fibrinogen 332 mg/dL (174-498); Glomerular Filtration Rate 30.5 mL/min (90-130); Glucose 266 mg/dL (65-115); Osmolality Calculated 323 mOsm/kg (285-295); Partial Thromboplastin Time 25.1 SECONDS (23.9-36.7); Potassium 3.2 mmol/L (3.5-5.1); Sodium 147 mmol/L (136-145)
[2023-08-18 00:17] LABS: D Dimer 1.63 ug/mLFEU (0-0.59)
[2023-08-18 00:28] LABS: Troponin 5 6HR 30.57 ng/L (0-10); Troponin 5 6HR Delta -3.43 ng/L (0-12)
--- NOTE | 2023-08-18 00:33 | PC.NURSE ---
Informed Dr Yoder of changes to blood sugars. placed orders
[2023-08-18] MEDS: dextrose 5%-sod chloride 0.9% 1,000 ML 75 ML IV (00:37)
[2023-08-18 00:44] LABS: LAB Peripheral Smear Sent for Review
[2023-08-18 00:48] LABS: HIV 1 & 2 Antibody Non-Reactive (Non-Reactiv); HIV 1 & 2 Antigen Non-Reactive (Non-Reactiv)
[2023-08-18 00:56] LABS: Hepatitis A Antibody IgM Non-Reactive (Nonreactive); Hepatitis B Core AB, Total Non-Reactive (Nonreactive); Hepatitis B Surface AB < 3.5 (11.5-1000); Hepatitis B Surface Antigen Non-Reactive (Nonreactive); Hepatitis C Virus Antibody Non-Reactive (Nonreactive)
--- NOTE | 2023-08-18 01:04 | ECG_ITS ---
[facility] Test Date: 2023-08-18 Pat Name: Krista Rutherford Department: Room: ICU07 Gender: Female Clay Pigeon Setter: : 1960 Requested By: Mariya Yoder Order Number: [id number] Ish MD: Omar Wyman M.D. Measurements Intervals [place] Rate: 103 P: 0 WV: 0 QRS: 24 QRSD: 100 T: 189 QT: 285 QTc: 374 Interpretive Statements Short run of atrial fibrillation followed by a sinus arrhythmia ST DEVIATION AND MODERATE T-WAVE ABNORMALITY, CONSIDER ANTEROLATERAL ISCHEMIA [-0.1+ mV T-WAVE IN V3-V6] Compared to ECG 08/17/2023 17:55:36 Sinus tachycardia no longer present T-wave abnormality still present Possible ischemia still present Electronically Signed On 08-18-2023 10:53:20 NEON GLASS BENDER by Omar Wyman M.D. [email or web address]
[2023-08-18 01:05] LABS: Glucose Point of Care 191 mg/dL (70-110)
[2023-08-18 01:05] LABS: Glucose Point of Care 272 mg/dL (70-110)
[2023-08-18] MEDS: lidocaine 1% 5 ML in potassium chloride premix 100 ML 25 ML IV (01:30)
--- NOTE | 2023-08-18 02:07 | PC.NURSE ---
Patient requesting something to drink. Informed Dr Yoder. Received instruction to give patient sips at this time. Patient able to follow directions and pull through a straw without difficulty or indication of aspiration. Will continue to monitor.
--- NOTE | 2023-08-18 02:19 | PC.NURSE ---
Dr Yoder in to see patient. Received instruction to reduce bicarb to 50ml/hr.
[2023-08-18 03:11] LABS: Glucose Point of Care 177 mg/dL (70-110)
[2023-08-18 04:11] LABS: Glucose Point of Care 192 mg/dL (70-110)
[2023-08-18 04:31] LABS: Basophils % 0.3 %; Hematocrit 48.3 % (36-47); Lymphocytes # 0.6 10^3/uL (0.8-4.8); Lymphocytes % 6.4 %; Mean Corpuscular HGB Conc 32.3 g/dL (30-55); Mean Corpuscular Hemoglobin 31.6 pg (27-33); Mean Corpuscular Volume 97.8 fl (85-98); Mean Platelet Volume 11.3 fL (7.4-10.4); Monocytes # 1.3 10^3/uL (0.2-0.9); Monocytes % 13.1 %; Neutrophils # 7.59 10^3/uL (1.8-7.7); Neutrophils % 78.5 %; Nucleated Red Blood Cells % 0.2 %; Platelet Count 108 10^3/cmm (157-399); Red Blood Count 4.94 10^6/uL (3.85-5.65); White Blood Count 9.67 10^3/uL (3.29-11.43)
[2023-08-18 04:45] LABS: Anion Gap 28.6 (5-19); Blood Urea Nitrogen 38 mg/dL (8-23); Calcium 10.6 mg/dL (8.5-10.5); Carbon Dioxide 13 mmol/L (22-29); Chloride 108 mmol/L (98-107); Creatinine Clr Calc Pharmacy 55.7012; Glomerular Filtration Rate 38.1 mL/min (90-130); Glucose 229 mg/dL (65-115); Osmolality Calculated 316 mOsm/kg (285-295); Potassium 4.6 mmol/L (3.5-5.1); Sodium 145 mmol/L (136-145)
[2023-08-18 04:48] LABS: Slide Review Slide Review Perform
[2023-08-18 04:53] LABS: Magnesium 2.6 mg/dL (1.7-2.3)
[2023-08-18 05:19] LABS: Estmated Average Glucose 206; Hemoglobin A1C 8.8 % (4.0-6.0)
[2023-08-18 05:19] LABS: Glucose Point of Care 212 mg/dL (70-110)
[2023-08-18] MEDS: dextrose 5%-sod chloride 0.45% 1,000 ML 75 ML IV (05:30)
[2023-08-18 06:04] LABS: Glucose Point of Care 221 mg/dL (70-110)
[2023-08-18 07:11] LABS: Glucose Point of Care 253 mg/dL (70-110)
[2023-08-18] MEDS: insulin regular-human 250 UNIT in sodium chloride 0.9% 250 ML 2.02000000000000002 UNIT IV (07:30)
[2023-08-18 08:00] LABS: Glucose Point of Care 145 mg/dL (70-110)
[2023-08-18 08:06] LABS: Glucose Point of Care 322 mg/dL (70-110)
[2023-08-18 08:14] LABS: Blood Urea Nitrogen 37 mg/dL (8-23); Calcium 10.3 mg/dL (8.5-10.5); Carbon Dioxide 11 mmol/L (22-29); Chloride 107 mmol/L (98-107); Creatinine Clr Calc Pharmacy 55.7012; Glomerular Filtration Rate 38.1 mL/min (90-130); Glucose 327 mg/dL (65-115); Osmolality Calculated 321 mOsm/kg (285-295); Sodium 145 mmol/L (136-145)
[2023-08-18 08:19] LABS: Anion Gap 31.4 (5-19); Potassium 4.4 mmol/L (3.5-5.1)
[2023-08-18 09:04] LABS: Glucose Point of Care 348 mg/dL (70-110); Glucose Point of Care 524 mg/dL (70-110)
[2023-08-18] MEDS: nystatin powder 15 gm Btl 1 APPLIC TOPICAL ×2 (10:16→17:38)
[2023-08-18 10:18] LABS: Glucose Point of Care 352 mg/dL (70-110)
[2023-08-18] MEDS: sodium bicarbonate 50 MEQ in sodium chloride 0.45% 1,000 ML IV (10:21)
--- NOTE | 2023-08-18 10:29 | XR_ITS ---
WS: [id number] Examination: XR chest 1V portable [id number] Reason for Exam: Post picc insertion Date: 08/18/2023 Comparison: 08/17/2023 Findings: In the interval a right-sided PICC has been placed. The tip lies well within the right atrium. The heart is mildly prominent in size. The lung markings remain increased without large effusion. IMPRESSION: Similar appearance of the heart and lungs. A right PICC has been placed in the interval. The tip of t he PICC lies well within the right atrium.
[2023-08-18 11:08] LABS: Glucose Point of Care 255 mg/dL (70-110)
--- NOTE | 2023-08-18 11:15 | PC.NURSE ---
Triple lumen PICC placed to right brachial vein. Referred to vascular access nurse for PICC placement due to poor access and need for cardizem and insulin drip. Pt not alert or oriented at this time. Pt spouse, Robert, contacted via phone. Risks and benefits discussed and informed consent obtained from spouse. Right arm assessed with right brachial vein measuring 4 mm, straight, and apparent best choice for placement. Using sterile technique and MST, right brachial vein accessed x 1 stick. Mid-arm circumference measured 10 cm from right AC 40 cm. Trimmed cath 38 cm with 0 cm external length noted. CXR shows tip in distal SVC, in excellent position for use per radiologist. Line secured with stat-lock. Insertion site covered with Biopatch and TSM. Report given to bedside nurseJorge Luis.
--- NOTE | 2023-08-18 11:26 | XR_ITS ---
WS: [id number] Examination: XR chest 1V portable [id number] Reason for Exam: PIIC line, repeat cxr Date: 08/18/2023, 11:29 a.m. Comparison: 08/18/2023, 11:20 a.m. Findings: In the interval of the right PICC has been pulled back and is in excellent position. The parents of the heart and lungs are unchanged with increased central markings. Impression: The right PICC has been repositioned and is in excellent position.
[2023-08-18 11:40] LABS: Iron 31 ug/dL (37-145)
[2023-08-18 11:43] LABS: Total Iron Binding Capacity 155 mcg/dl; Unsaturated Iron Binding 124 ug/dL (112-347)
[2023-08-18] MEDS: dilTIAZem 100 MG in sodium chloride 0.9% (add-van) 100 ML IV ×2 (11:44→23:51)
[2023-08-18] MEDS: sodium chloride 0.45% 1,000 ML 100 ML IV (11:46)
[2023-08-18] MEDS: pantoprazole 40 mg SDV IVP (11:51)
--- NOTE | 2023-08-18 12:05 | PC.NURSE ---
1130 Dr. Alvarenga here, new orders. Ask me to wait until PIIC line is in to add Cardizem, change IV fluids to 1/2 NS and then run Insulin at 12u/hr. 1155 PIIC line in and confirmed by xray. Started Cardizem, 1/2NS, and changed Insulin to 12u/hr as ordered.
[2023-08-18 12:06] LABS: Glucose Point of Care 281 mg/dL (70-110)
[2023-08-18 12:13] LABS: Thyroid Stimulating Hormone 0.52 uIU/mL (0.27-4.20); Vitamin B12 1276 pg/mL (232-1245)
[2023-08-18 13:09] LABS: Glucose Point of Care 223 mg/dL (70-110)
[2023-08-18 14:06] LABS: Glucose Point of Care 174 mg/dL (70-110)
[2023-08-18 15:24] LABS: Glucose Point of Care 246 mg/dL (70-110)
--- NOTE | 2023-08-18 15:35 | P.PN_ITS ---
Subjective 2 Subjective: Admitted overnight. H&P and labs appreciated. Today morning patient seen being on insulin drip bicarb drip and D5 NS. Patient in A-fib with RVR. PICC line being placed. Patient awake but drowsy but able to follow directions. Vitals/I&O/Wt Last Vital Signs Temp 98.0 F 08/18/23 12:00 Pulse 123 H 08/18/23 14:00 Resp 28 H 08/18/23 12:00 BP 111/61 08/18/23 12:00 Pulse Ox 99 08/18/23 12:00 O2 Del Method Room Air 08/18/23 05:30 O2 Flow Rate 4 08/17/23 17:56 08/18/23 08/18/23 08/18/23 06:59 14:59 22:59 Intake Total 1268.231 / 1288.171 456.662 / 456.662 Output Total 750 / 750 Balance 518.231 / 538.171 456.662 / 456.662 Weight last 48 hrs Weight 84.686 kg Weight 84.686 kg Weight 84.686 kg Weight 117.934 kg Physical Exam 2 Narrative: General: No acute distress, ill appearing, confused, arousable HEENT: PERRLA, pupils bilaterally equal and reactive, pallors not present Chest: Normal vesicular breath sounds CVS: S1-S2 regular, no murmurs, no tachycardia Abdomen: Soft, nontender, no organomegaly, bowel sounds present Neuro: No focal deficits grossly moves all extremities laying in bed though not to commands. Extremities: B/L inguinal fold candidiasis Urinary Catheter Management: Marrero: Cath Placed During This Visit: yes Reason for Continuing Indwelling Catheter: Accurate Measurement of Urinary Output in Critically Ill Patients Urinary Catheter Date of Insertion: 08/17/23 Urinary Catheter Time of Insertion: 16:35 Data 08/18/23 04:14 08/18/23 07:48 Micro: Microbiology 08/17/23 18:25 Blood Culture - Preliminary Blood SPECIMEN COLLECTED 08/17/23 18:23 Blood Culture - Preliminary Blood SPECIMEN COLLECTED A&P Assessment and plan (1) Diabetic keto-acidosis: With significant metabolic acidosis. Patient also has altered mental status. A1c 8.8. Continue with insulin drip. Monitor BMP every 4 hours. Keep potassium around 4. Replete accordingly. Patient developing mild hypernatremia. Stop bicarb drip and D5. Switch to half NS at 100 cc/h. If blood sugars drop below 200 we will switch to D5 NS at 125 cc/h. Keep NPO. Qualifiers: Diabetes mellitus type: type 2 Diabetes mellitus complication detail: w ith coma Qualified Code(s): E11.11 - Type 2 diabetes mellitus with ketoacidosis with coma (2) Atrial fibrillation and flutter: Not sure if patient has past medical history. Currently in A-fib with RVR. Patient is NPO. Start on IV Cardizem drip. Target heart rate less than 100. Patient takes Eliquis 5 mg twice daily at home. Overnight on admission had severe thrombocytopenia. Now platelet count 108. Most likely blood work from last night with adder. Will confirm with repeat CBC. If platelet count stable will start on full dose Lovenox 1 mg/kg with every 8 every 12 hourly as patient is currently NPO. (3) Acute kidney injury: Medical reconciliation done for nephrotoxic drugs. Most likely in setting of dehydration secondary to DKA and home dose of lisinopril. Monitor BMP every 4 hourly for DKA for now. Strict input output charting. (4) Acute alteration in mental status: Likely related to DKA and hyperosmolar state CT head negative for acute intracranial events (5) Thrombocytopenia: Overnight blood work done for possible DIC panel, peripheral smear, hepatitis and HIV negative. Today morning platelet count up to 108. High likelihood of false lab overnight. Will repeat CBC to confirm. (6) Hypernatremia: (7) High anion gap metabolic acidosis: Plan Crural candidiasis: Nystatin powder for local application N.p.o. Protonix for PUD prophylaxis DVT prophylaxis: SCDs only. Anticoagulation contraindicated. Full code Attestations 2 Medical Necessity Statement*: Requires further hospitalization for management of high metabolic acidosis, acute kidney injury and hypernatremia in setting of severe DKA, A-fib with RVR Diagnoses Diabetic ketoacidosis with coma associated with type 2 diabetes mellitus E11.11 Diabetes mellitus type: type 2 Diabetes mellitus complication detail: with coma Atrial fibrillation and flutter I48.91; I48.92 Acute kidney injury N17.9 Acute alteration in mental status R41.82 Thrombocytopenia D69.6 Hypernatremia E87.0 High anion gap metabolic acidosis E87.29
--- NOTE | 2023-08-18 15:44 | USCV_ITS ---
Krista Rutherford Age: 63 Gender: F : 1960 Exam Date: 08/18/2023 18:11 Ordering Phys: Fam Alvarenga MD Technologist: HEATHER Exam Location: [facility] [place] Indication: Altered Mental Status, hypoxia, Afib in ER. History of DM. No history of cardiac intervention per patient. BP: 106 / 70 HR: 99 Rhythm: Sinus Technical Quality: Adequate MEASUREMENTS (Male / Female) Normal Values 2D ECHO LV Diastolic Diameter PLAX 3.4 cm 4.2 - 5.9 / 3.9 - 5.3 cm IVS Diastolic Thickness 1.2 cm 0.6 - 1.0 / 0.6 - 0.9 cm IVS Systolic Thickness 1.1 cm LVPW Diastolic Thickness 1.2 cm 0.6 - 1.0 / 0.6 - 0.9 cm LVPW Systolic Thickness 1.7 cm LVOT Diameter 2.0 cm LV Ejection Fraction 2D Teich 60.9 % LV Ejection Fraction MOD 2C 60.4 % LV Ejection Fraction 2C AL 0.0 % LA Diameter 3.0 cm Aorta at Sinotubular Diameter 2.9 cm IVC Diameter 1.1 cm M-MODE LA Ao Ratio MM 1.0 AV Cusp Separation MM 1.5 cm DOPPLER AV Peak Velocity 161.0 cm/s LVOT Peak Velocity 128.0 cm/s AV Area Cont Eq vti 3.2 cm squared AV Area Cont Eq pk 2.4 cm squared MV Peak Velocity 99.0 cm/s MV Area PHT 4.9 cm squared Mitral E to A Ratio 0.8 TV Peak E Velocity 49.0 cm/s PV Peak Velocity 149.0 cm/s FINDINGS Left Ventricle Left ventricle is normal in size. LV systolic function is normal with EF of 55-60%. No regional wall motion abnormalities are seen. Grade 1 diastolic dysfunction Right Ventricle Normal in size and function Right Atrium Normal in size. Interatrial septum is thickened. Left Atrium Normal in size Mitral Valve Structurally normal mitral valve. No significant regurgitation. Aortic Valve Aortic valve is thickened. No significant stenosis or regurgitation. Tricuspid Valve Trace tricuspid regurgitation. Insufficient TR jet to calculate RVSP. Pulmonic Valve Not well visualized Pericardium Normal Aorta Normal in size IVC Appears to be normal CONCLUSIONS LV systolic function is normal with EF of 55 to 60%. Grade 1 diastolic dysfunction. Interatrial septum is thickened. Trace tricuspid regurgitation No comparison studies are available. Wilder Lozada MD (Electronically Signed) Final Date: 19 August 2023 09:52 S
[2023-08-18 16:02] LABS: Basophils % 0.1 %; Eosinophils % 0.1 %; Hematocrit 42.7 % (36-47); Lymphocytes # 0.5 10^3/uL (0.8-4.8); Lymphocytes % 6.4 %; Mean Corpuscular Hemoglobin 31.3 pg (27-33); Mean Corpuscular Volume 92.2 fl (85-98); Mean Platelet Volume 11.3 fL (7.4-10.4); Monocytes # 0.9 10^3/uL (0.2-0.9); Monocytes % 10.3 %; Neutrophils # 6.96 10^3/uL (1.8-7.7); Neutrophils % 82.3 %; Nucleated Red Blood Cells % 0.2 %; Platelet Count 81 10^3/cmm (157-399); Red Blood Count 4.63 10^6/uL (3.85-5.65); Red Cell Distribution Width 15.3 % (12.1-15.1); White Blood Count 8.46 10^3/uL (3.29-11.43)
[2023-08-18 16:05] LABS: Glucose Point of Care 149 mg/dL (70-110)
[2023-08-18] MEDS: dextrose 5%-sod chloride 0.9% 1,000 ML 125 ML IV (16:11)
[2023-08-18 17:04] LABS: Blood Urea Nitrogen 28 mg/dL (8-23); Calcium 9.5 mg/dL (8.5-10.5); Carbon Dioxide 17 mmol/L (22-29); Chloride 111 mmol/L (98-107); Creatinine Clr Calc Pharmacy 70.8924; Glomerular Filtration Rate 50.3 mL/min (90-130); Glucose 162 mg/dL (65-115); Osmolality Calculated 309 mOsm/kg (285-295); Sodium 145 mmol/L (136-145)
[2023-08-18 17:04] LABS: Glucose Point of Care 192 mg/dL (70-110)
--- NOTE | 2023-08-18 17:07 | PC.NURSE ---
[address] Alvarenga of blood sugar of 192 with IV fluid of D5NS at 125/hr and Insulin gtt at 3u/hr. He asks me to keeep Insulin drip at 3u/hr and incrase D5NS to 150ml.hr. I did so.
[2023-08-18 17:24] LABS: Anion Gap 21.7 (5-19); Potassium 4.7 mmol/L (3.5-5.1)
[2023-08-18 18:04] LABS: Glucose Point of Care 208 mg/dL (70-110)
[2023-08-18 19:20] LABS: Glucose Point of Care 252 mg/dL (70-110)
[2023-08-18 20:09] LABS: Glucose Point of Care 226 mg/dL (70-110)
[2023-08-18 21:06] LABS: Glucose Point of Care 261 mg/dL (70-110)
--- NOTE | 2023-08-18 21:16 | PC.NURSE ---
Assumed care of patient, report received from PADMINI Kemp.
[2023-08-18 22:03] LABS: Glucose Point of Care 264 mg/dL (70-110)
[2023-08-18 22:24] LABS: Blood Urea Nitrogen 26 mg/dL (8-23); Calcium 9.3 mg/dL (8.5-10.5); Carbon Dioxide 18 mmol/L (22-29); Chloride 113 mmol/L (98-107); Creatinine Clr Calc Pharmacy 77.9817; Glomerular Filtration Rate 56.2 mL/min (90-130); Glucose 274 mg/dL (65-115); Osmolality Calculated 319 mOsm/kg (285-295); Sodium 147 mmol/L (136-145)
[2023-08-18 22:27] LABS: Anion Gap 19.7 (5-19); Potassium 3.7 mmol/L (3.5-5.1)
[2023-08-18 23:02] LABS: Glucose Point of Care 250 mg/dL (70-110)
[2023-08-18] MEDS: dextrose 5%-sod chloride 0.9% 1,000 ML 150 ML IV (23:03)
[2023-08-18] MEDS: ondansetron 2 mg/ML SDV 2 mL 4 MG IVP (23:47)
[2023-08-18 23:54] LABS: Glucose Point of Care 233 mg/dL (70-110)
[2023-08-19] VITALS (21 sets, daily range): BP systolic 89–143; BP diastolic 42–83; PULSE 82–109; RESP 15–35; TEMP 36.2–37.4; O2SAT 90–100
[2023-08-19 00:58] LABS: Glucose Point of Care 268 mg/dL (70-110)
[2023-08-19 02:02] LABS: Glucose Point of Care 265 mg/dL (70-110)
[2023-08-19 02:22] LABS: Blood Urea Nitrogen 22 mg/dL (8-23); Calcium 9.4 mg/dL (8.5-10.5); Carbon Dioxide 22 mmol/L (22-29); Chloride 116 mmol/L (98-107); Chol HDL Ratio 3.74 mg/dL (0.0-4.40); Cholesterol 172 mg/dL (0-200); Creatinine Clr Calc Pharmacy 86.6463; Glomerular Filtration Rate 63.4 mL/min (90-130); Glucose 278 mg/dL (65-115); HDL Cholesterol 46 mg/dL (60-100); LDL Cholesterol Calculated 86 mg/dL (50-129); Magnesium 2.1 mg/dL (1.7-2.3); Osmolality Calculated 323 mOsm/kg (285-295); Sodium 150 mmol/L (136-145); Triglycerides 200 mg/dL (0-150); VLDL Cholestrol Calculation 40 mg/dL (0-30)
[2023-08-19 02:24] LABS: Anion Gap 15.5 (5-19); Potassium 3.5 mmol/L (3.5-5.1)
[2023-08-19 02:25] LABS: Phosphorus 0.5 mg/dL (2.5-4.5)
--- NOTE | 2023-08-19 02:44 | PC.NURSE ---
Notified Dr. Yoder of critical Phosphorous of 0.5, order given not to treat phosphorous at this time. Notified of K of 3.5, Anion gap of 15.5, CO2 of 22, and Na+ of 150. Order given to continue running the insulin drip and given 20meq K with lidocaine IV x 1 dose.
[2023-08-19] MEDS: lidocaine 1% 5 ML in potassium chloride premix 100 ML 52.5 ML IV (03:04)
[2023-08-19 03:09] LABS: Glucose Point of Care 279 mg/dL (70-110)
[2023-08-19 04:07] LABS: Glucose Point of Care 253 mg/dL (70-110)
[2023-08-19 04:55] LABS: Glucose Point of Care 250 mg/dL (70-110)
[2023-08-19] MEDS: dextrose 5%-sod chloride 0.9% 1,000 ML 150 ML IV (05:48)
[2023-08-19 05:49] LABS: Glucose Point of Care 214 mg/dL (70-110)
[2023-08-19 05:58] LABS: Basophils % 0.3 %; Hematocrit 39.3 % (36-47); Lymphocytes # 0.6 10^3/uL (0.8-4.8); Lymphocytes % 7.6 %; Mean Corpuscular HGB Conc 34.6 g/dL (30-55); Mean Corpuscular Hemoglobin 31.6 pg (27-33); Mean Corpuscular Volume 91.4 fl (85-98); Mean Platelet Volume 10.9 fL (7.4-10.4); Monocytes # 0.7 10^3/uL (0.2-0.9); Monocytes % 9.7 %; Neutrophils # 5.86 10^3/uL (1.8-7.7); Neutrophils % 81.4 %; Nucleated Red Blood Cells % 0.4 %; Platelet Count 85 10^3/cmm (157-399); Red Cell Distribution Width 15.2 % (12.1-15.1)
[2023-08-19 06:14] LABS: Alanine Aminotransferase 12 U/L (0-33); Albumin Level 2.7 g/dL (3.5-5.2); Alkaline Phosphatase 78 U/L (35-105); Aspartate Amino Transferase 16 U/L (0-32); Blood Urea Nitrogen 19 mg/dL (8-23); Calcium 9.2 mg/dL (8.5-10.5); Carbon Dioxide 22 mmol/L (22-29); Chloride 118 mmol/L (98-107); Creatinine Clr Calc Pharmacy 109.6943; Globulin 2.5 g/dL (1.3-4.6); Glomerular Filtration Rate 72.7 mL/min (90-130); Glucose 228 mg/dL (65-115); Osmolality Calculated 321 mOsm/kg (285-295); Sodium 151 mmol/L (136-145); Total Bilirubin 0.3 mg/dL (0.15-1.2); Total Protein 5.2 g/dL (6.6-8.7)
[2023-08-19 06:15] LABS: Anion Gap 14.2 (5-19); Potassium 3.2 mmol/L (3.5-5.1)
[2023-08-19 06:42] LABS: Folate Level 3.1 ng/mL (4.8-37.3)
[2023-08-19 06:58] LABS: Glucose Point of Care 195 mg/dL (70-110)
--- NOTE | 2023-08-19 07:03 | PC.NURSE ---
Notified Dr Yoder of K of 3.2 and Na of 151. Order given for 40meq IV potassium.
[2023-08-19] MEDS: potassium phosphate (mEq K) 40 MEQ in sodium chloride 0.9% (100 ml) 100 ML 27.2699999999999996 MEQ IV ×2 (08:15→23:49)
[2023-08-19] MEDS: insulin glargine 100 units/1 mL 40 UNIT SUBCUT ×2 (08:15→18:07)
[2023-08-19 08:24] LABS: Glucose Point of Care 205 mg/dL (70-110)
[2023-08-19] MEDS: metoprolol tartrate 25 mg Tablet PO (08:59)
[2023-08-19] MEDS: dextrose 5% 1,000 ML 75 ML IV (09:01)
[2023-08-19] MEDS: pantoprazole 40 mg SDV IVP (09:03)
[2023-08-19] MEDS: enoxaparin 100 mg/mL Syringe SUBCUT ×2 (09:11→19:43)
[2023-08-19] MEDS: lidocaine 1% 5 ML in potassium chloride premix 100 ML 26.25 ML IV (09:12)
[2023-08-19] MEDS: nystatin powder 15 gm Btl 1 APPLIC TOPICAL ×2 (09:59→18:07)
[2023-08-19 10:08] LABS: Glucose Point of Care 267 mg/dL (70-110)
[2023-08-19 10:08] LABS: Glucose Point of Care 265 mg/dL (70-110)
[2023-08-19 11:11] LABS: Glucose Point of Care 309 mg/dL (70-110)
--- NOTE | 2023-08-19 11:16 | P.PN_ITS ---
Subjective 2 Subjective: Seen multiple times during the day. Overnight anion gap was closed. Patient's mentation improving now. Continues to remain slightly drowsy though. Heart rate controlled. On Cardizem drip. Appreciate urine output. Remains on room air. Afebrile and hemodynamically stable. Vitals/I&O/Wt Last Vital Signs Temp 98.7 F 08/19/23 14:00 Pulse 92 08/19/23 14:00 Resp 23 H 08/19/23 14:00 BP 98/45 08/19/23 14:00 Pulse Ox 94 08/19/23 14:00 O2 Del Method Room Air 08/19/23 14:00 O2 Flow Rate 4 08/17/23 17:56 08/19/23 08/19/23 08/19/23 06:59 14:59 22:59 Intake Total 2121.379 / 3159.982 1820.624 / 1820.624 Output Total 925 / 1575 Balance 1196.379 / 3469.271 8740.624 / 1820.624 Weight last 48 hrs Weight 95.3 kg Weight 84.686 kg Weight 84.686 kg Weight 84.686 kg Weight 117.934 kg Physical Exam 2 Narrative: General: No acute distress, ill appearing, more awake, drowsy HEENT: PERRLA, pupils bilaterally equal and reactive, pallors not present Chest: Normal vesicular breath sounds CVS: S1-S2 regular, no murmurs, no tachycardia Abdomen: Soft, nontender, no organomegaly, bowel sounds present Neuro: No focal deficits grossly moves all extremities laying in bed though not to commands. Extremities: B/L inguinal fold candidiasis Urinary Catheter Management: Marrero: Cath Placed During This Visit: yes Reason for Continuing Indwelling Catheter: Accurate Measurement of Urinary Output in Critically Ill Patients Urinary Catheter Date of Insertion: 08/17/23 Urinary Catheter Time of Insertion: 16:35 Data 08/19/23 05:47 08/19/23 05:47 Micro: Microbiology 08/17/23 18:25 Blood Culture - Preliminary Blood NEGATIVE TO DATE 08/17/23 18:23 Blood Culture - Preliminary Blood NEGATIVE TO DATE A&P Assessment and plan (1) Diabetic keto-acidosis: With significant metabolic acidosis with pH of 7.09 on admission. A1c 8.8. Anion gap has closed. Patient has developed hypernatremia with poor oral intake and mentation for now. Continue with insulin drip. Change fluid to D5W at 75 cc/h. Blood sugar checks every hour. Start on clear liquid carb consistent diet. At home it seems patient takes glargine 120 mg at bedtime along with NovoLog 70/30. Switch to Lantus 40 units twice daily. Repeat BMP at 12 PM. Once patient's oral intake improved and hypernatremia is resolving we will discontinue insulin drip. Monitor potassium and replete accordingly with target more than 4. Qualifiers: Diabetes mellitus complication detail: with coma Diabetes mellitus type: type 2 Qualified Code(s): E11.11 - Type 2 diabetes mellitus with ketoacidosis with coma (2) Atrial fibrillation and flutter: Heart rate controlled. Remains in sinus rhythm now. Not sure if patient has past medical history. Currently in A-fib with RVR. Stop Cardizem drip started on metoprolol 25 mg twice daily. Patient takes Eliquis 5 mg twice daily at home. Blood work confirmed twice. Patient does have thrombocytopenia but platelet count more than 80. Start on Lovenox 1 mg/kg body weight every 12 hourly. Once oral intake more stable we will switch to home dose of Eliquis. (3) Acute kidney injury: Resolved. Medical reconciliation done for nephrotoxic drugs. Most likely in setting of dehydration secondary to DKA and home dose of lisinopril. Monitor BMP as above. Strict input output charting. (4) Acute alteration in mental status: Likely related to DKA and hyperosmolar state CT head negative for acute intracranial events (5) Thrombocytopenia: Could be in setting of severe DKA. Hemoglobin stable. Platelet count stable around 80,000. Continue to monitor daily. (6) Hypernatremia: (7) High anion gap metabolic acidosis: Plan Crural candidiasis: Nystatin powder for local application Clear carb consistent diet as above. Protonix for PUD prophylaxis DVT prophylaxis: Lovenox as above Full code Attestations 2 Medical Necessity Statement*: Requires further hospitalization for management of altered mental status in setting of diabetic ketoacidosis, hypernatremia, atrial fibrillation while patient's oral intake is started and insulin drip was transitioned to subcu insulin while managing electrolyte abnormalities Diagnoses Diabetic ketoacidosis with coma associated with type 2 diabetes mellitus E11.11 Diabetes mellitus complication detail: with coma Diabetes mellitus type: type 2 Atrial fibrillation and flutter I48.91; I48.92 Acute kidney injury N17.9 Acute alteration in mental status R41.82 Thrombocytopenia D69.6 Hypernatremia E87.0 High anion gap metabolic acidosis E87.29
[2023-08-19 13:15] LABS: Glucose Point of Care 271 mg/dL (70-110)
[2023-08-19 13:15] LABS: Glucose Point of Care 265 mg/dL (70-110)
[2023-08-19 14:32] LABS: Glucose Point of Care 219 mg/dL (70-110)
[2023-08-19] MEDS: insulin regular-human 250 UNIT in sodium chloride 0.9% 250 ML 7.07000000000000028 UNIT IV (14:43)
[2023-08-19 15:27] LABS: Glucose Point of Care 218 mg/dL (70-110)
[2023-08-19 16:06] LABS: Glucose Point of Care 216 mg/dL (70-110)
[2023-08-19 18:18] LABS: Blood Urea Nitrogen 15 mg/dL (8-23); Carbon Dioxide 20 mmol/L (22-29); Chloride 114 mmol/L (98-107); Creatinine Clr Calc Pharmacy 109.6943; Glomerular Filtration Rate 72.7 mL/min (90-130); Glucose 205 mg/dL (65-115); Osmolality Calculated 299 mOsm/kg (285-295); Sodium 141 mmol/L (136-145)
[2023-08-19 18:19] LABS: Glucose Point of Care 216 mg/dL (70-110)
[2023-08-19 18:19] LABS: Glucose Point of Care 178 mg/dL (70-110)
[2023-08-19 18:21] LABS: Anion Gap 10.9 (5-19); Potassium 3.9 mmol/L (3.5-5.1)
[2023-08-19 18:23] LABS: Phosphorus 0.7 mg/dL (2.5-4.5)
--- NOTE | 2023-08-19 19:10 | PC.NURSE ---
Shift summary: Pt is alert and oriented. She is able to answer all the questions appropriately when she wants to. She has has at times refused to answer questions until it was pointed out that her participating would help get her out of the hospital quicker. She has refused to take most of the oral tables today the only except was the beta brittani and folic acid in the am. Her Anion gap has improved. Insulin gtt stopped right at shift change this evening. Her phosphorus level was low , potassium phos and potassium 40 Meq this shift per IV, Orders received at shift change for 2 more doses of Potassium phosphate, awaiting pharmacy verification. Urine output of 450ml this shift. No Bm noted. Pericare provided, yeasty foul odor noted, pt did not want full yisel care, barely allowed the Nystatin powder to be applied.
[2023-08-19 19:39] LABS: Glucose Point of Care 177 mg/dL (70-110)
[2023-08-19] MEDS: potassium phosphate (mEq K) 40 MEQ in sodium chloride 0.9% (100 ml) 100 ML 27.3000000000000007 MEQ IV (19:43)
[2023-08-19] MEDS: sodium chloride 0.45% 1,000 ML 75 ML IV (19:44)
--- NOTE | 2023-08-19 23:30 | PC.NURSE ---
patient refused evening dose of metoprolol. dr gastelum.
[2023-08-20] VITALS (24 sets, daily range): BP systolic 99–146; BP diastolic 57–94; PULSE 79–115; RESP 17–43; TEMP 36.4–37.3; O2SAT 89–99; BMI 34.9
[2023-08-20 00:30] LABS: Glucose Point of Care 223 mg/dL (70-110)
[2023-08-20] MEDS: insulin lispro 100 unit/1 mL SUBCUT ×5 (00:42→20:32)
[2023-08-20 04:45] LABS: Magnesium 1.6 mg/dL (1.7-2.3); Phosphorus 3.6 mg/dL (2.5-4.5)
[2023-08-20 06:10] LABS: Glucose Point of Care 153 mg/dL (70-110)
--- NOTE | 2023-08-20 06:16 | PC.NURSE ---
Low Mag: Dr. Yoder on unit, verbal order for 1gm magnesium sulfate IV.
[2023-08-20] MEDS: magnesium sulfate premix 1 GM/100 ML PIGGYBACK IV (06:26)
[2023-08-20] MEDS: enoxaparin 100 mg/mL Syringe SUBCUT ×2 (06:30→20:25)
[2023-08-20] MEDS: metoprolol tartrate 25 mg Tablet PO ×2 (08:33→20:25)
[2023-08-20] MEDS: folic acid 1 mg Tablet PO ×2 (08:34→17:48)
[2023-08-20] MEDS: nystatin powder 15 gm Btl 1 APPLIC TOPICAL ×2 (08:37→17:48)
[2023-08-20] MEDS: pantoprazole 40 mg SDV IVP (08:37)
[2023-08-20] MEDS: insulin glargine 100 units/1 mL 40 UNIT SUBCUT ×2 (08:39→17:50)
[2023-08-20] MEDS: sodium chloride 0.45% 1,000 ML 75 ML IV (08:42)
--- NOTE | 2023-08-20 08:54 | P.PN_ITS ---
Subjective 2 Subjective: No events overnight. Nursing reports she has been more awake and alert. Does not like the liquid diet and is requesting to eat something. Up in the chair this morning. Denies pain or other concerns. Medications: Reviewed: Yes Vitals/I&O/Wt Last Vital Signs Temp 98.5 F 08/20/23 04:00 Pulse 109 H 08/20/23 06:00 Resp 17 08/20/23 06:00 BP 106/78 08/20/23 06:00 Pulse Ox 91 08/20/23 06:00 O2 Del Method Room Air 08/20/23 04:00 O2 Flow Rate 4 08/17/23 17:56 08/19/23 08/20/23 08/20/23 22:59 06:59 14:59 Intake Total 1446.5356 / 3467.1596 1120.7712 / 4587.9308 188.75 / 188.75 Output Total 625 / 625 400 / 1025 Balance 821.5356 / 2842.4243 518.0177 / 3562.9308 188.75 / 188.75 Weight last 48 hrs Weight 173 lb 1.6 oz Weight 210 lb 1.6 oz Physical Exam 2 Narrative: General: Cooperative patient in no apparent distress. Well developed. more alert today. HEENT: Normocephalic, Atraumatic. External ears normal. Nasal passages patent without drainage. MMM. Heart: Tachycardic with regular rhythm. Resp: LCTA. No respiratory distress, no use of accessory muscles. Abd: Soft, non-tender. Non-distended. Extremities: No edema. Skin: No rash or lesions on exposed areas. Neuro: No focal motor or sensory loss. Urinary Catheter Management: Marrero: Cath Placed During This Visit: yes Reason for Continuing Indwelling Catheter: Accurate Measurement of Urinary Output in Critically Ill Patients Urinary Catheter Date of Insertion: 08/17/23 Urinary Catheter Time of Insertion: 16:35 Data 08/19/23 05:47 08/20/23 13:07 A&P Assessment and plan (1) Diabetic keto-acidosis: Qualifiers: Diabetes mellitus complication detail: with coma Diabetes mellitus type: type 2 Qualified Code(s): E11.11 - Type 2 diabetes mellitus with ketoacidosis with coma (2) Atrial fibrillation and flutter: (3) Acute kidney injury: (4) Acute alteration in mental status: (5) Thrombocytopenia: (6) Hypernatremia: (7) High anion gap metabolic acidosis: Plan 63-year-old female admitted for altered mental status, diabetic ketoacidosis, hyponatremia and thrombocytopenia. Continue close ICU monitoring. She is more awake and alert today. She is able to answer questions and is oriented. Sugars have improved. She is now in the lower 200s. Her oral intake has improved. Her diet was advanced to carb consistent. She has been able to drink more fluids. Sodium has improved to 137. Will DC fluids at this time. Will change insulin regimen to her Lantus, and sliding scale insulin. Will check sugars before meals and at bedtime. Continue nystatin powder for candidiasis. Physical therapy to evaluate and treat. Heart rate and blood pressure are well-controlled. Platelet count is at 85,000. Phosphorus has improved to 3.6. We can discontinue her oral phosphorus at this time. Plan to recheck in the a.m. Magnesium is at 1.6. Will continue to replace and recheck. Recheck am labs. Code Status: Full IVF: None DVT PPx: Lovenox GI PPx: Tonics ABx: None Diet: Carb consistent Discharge plan: Home when appropriate Attestations 2 Medical Necessity Statement*: Requires further hospitalization for management of altered mental status in setting of diabetic ketoacidosis, hypernatremia, atrial fibrillation while patient's oral intake is started and insulin drip was transitioned to subcu insulin while managing electrolyte abnormalities Coding Level of Care Code Acute Code for Chg Fwd Moderate MDM includes number and complexity of problems actively addressed during encounter, amount and/or complexity of data reviewed/ordered and described risk of complication, morbidity or mortality of management as documented Diagnoses Diabetic ketoacidosis with coma associated with type 2 diabetes mellitus E11.11 Diabetes mellitus complication detail: with coma Diabetes mellitus type: type 2 Atrial fibrillation and flutter I48.91; I48.92 Acute kidney injury N17.9 Acute alteration in mental status R41.82 Thrombocytopenia D69.6 Hypernatremia E87.0 High anion gap metabolic acidosis E87.29
[2023-08-20 12:16] LABS: Glucose Point of Care 207 mg/dL (70-110)
--- NOTE | 2023-08-20 12:36 | PC.NUTR ---
Consult for TF recommendations received. Recommend consideration of Jevity 1.5 beginning @ 20mls/hr and increasing 20mls Q8H with goal rate of 40 mls/hr and FWF 120mls Q4H or per MD discretion. Details in RD assessment.
[2023-08-20 14:01] LABS: Alanine Aminotransferase 18 U/L (0-33); Albumin Level 2.4 g/dL (3.5-5.2); Alkaline Phosphatase 102 U/L (35-105); Anion Gap 17.2 (5-19); Aspartate Amino Transferase 17 U/L (0-32); Blood Urea Nitrogen 13 mg/dL (8-23); Calcium 8.7 mg/dL (8.5-10.5); Carbon Dioxide 19 mmol/L (22-29); Chloride 105 mmol/L (98-107); Creatinine Clr Calc Pharmacy 103.2872; Globulin 2.8 g/dL (1.3-4.6); Glomerular Filtration Rate 84.8 mL/min (90-130); Glucose 219 mg/dL (65-115); Osmolality Calculated 291 mOsm/kg (285-295); Potassium 4.2 mmol/L (3.5-5.1); Sodium 137 mmol/L (136-145); Total Bilirubin 0.4 mg/dL (0.15-1.2); Total Protein 5.2 g/dL (6.6-8.7)
[2023-08-20 17:33] LABS: Glucose Point of Care 180 mg/dL (70-110)
--- NOTE | 2023-08-20 18:22 | PC.NURSE ---
Shift summary: Pt much more alert and cooperative today. She has difficulty swallowing pills. She needs milk to to help her swallow. She has sat up in chair twice this shift, at breakfast and dinner times. Each time around 2 hours. Her blood sugars ahve been 180-207mg/dl this shift. She is still receiving the 40units of Lantus BID. She is now on sliding scale with meals and bedtime. She has a poor appetite still but has tried to eat at least 25% of her meals. IVF now stopped. Sinus rhythm noted on monitor. She has had 450 of dark urine output. Cece-care and cath care provided but still has a yeasty odor. She willing participated with PT today.
[2023-08-20 20:44] LABS: Glucose Point of Care 238 mg/dL (70-110)
--- NOTE | 2023-08-20 21:38 | PC.NURSE ---
Dr was notified that patient had attempted to have a BM on the commode and was able to only get one hard formed piece of stool out. when wiping the patient business writer noticed that hard and compacted stool was felt at the entrance of the anus and under the skin of the perineum. dr gave order for digital dis-impact the patient to aid in passage of stool. 4 passes were made, patient tolerated well, small amount of round firm pieces of stool removed. will continue to monitor patient and reassess.
--- NOTE | 2023-08-20 21:55 | PC.NURSE ---
Constipation: Dr. Hernandez on unit post digital impaction. Verbal order for 1 dose Miralax 17 gram NOW. 17g Miralax PO 0900. Then PRN Milk of Mag 15ml PO to be given post 2 doses of Miralax if constipation persist.
--- NOTE | 2023-08-20 23:31 | PC.NURSE ---
patient refused first dose of miralax. patient encouraged to take it, educated on how medication would help with constipation. patient still refused saying she would take it later.
[2023-08-21] VITALS (16 sets, daily range): BP systolic 82–130; BP diastolic 47–88; PULSE 80–103; RESP 16–23; TEMP 36.7–37.4; O2SAT 91–99
[2023-08-21 05:34] LABS: Magnesium 1.7 mg/dL (1.7-2.3); Phosphorus 2.2 mg/dL (2.5-4.5)
[2023-08-21 07:53] LABS: Glucose Point of Care 135 mg/dL (70-110)
[2023-08-21] MEDS: polyethylene glycol 3350 Pkt 17 gm PO (08:52)
[2023-08-21] MEDS: enoxaparin 100 mg/mL Syringe SUBCUT ×2 (08:52→21:30)
[2023-08-21] MEDS: insulin glargine 100 units/1 mL 40 UNIT SUBCUT ×2 (08:52→17:31)
[2023-08-21] MEDS: folic acid 1 mg Tablet PO ×2 (08:52→17:32)
[2023-08-21] MEDS: metoprolol tartrate 25 mg Tablet PO ×2 (08:52→21:30)
[2023-08-21] MEDS: nystatin powder 15 gm Btl 1 APPLIC TOPICAL ×2 (08:54→17:32)
[2023-08-21] MEDS: pantoprazole 40 mg SDV IVP (08:54)
[2023-08-21 11:46] LABS: Basophils % 0.4 %; Eosinophils # 0.1 10^3/uL (0.0-0.8); Eosinophils % 0.7 %; Lymphocytes # 1.3 10^3/uL (0.8-4.8); Lymphocytes % 14.6 %; Mean Corpuscular HGB Conc 33.7 g/dL (30-55); Mean Corpuscular Hemoglobin 31.9 pg (27-33); Mean Corpuscular Volume 94.6 fl (85-98); Mean Platelet Volume 12.1 fL (7.4-10.4); Monocytes # 0.8 10^3/uL (0.2-0.9); Monocytes % 9.1 %; Neutrophils # 6.65 10^3/uL (1.8-7.7); Neutrophils % 73.1 %; Nucleated Red Blood Cells % 0.4 %; Platelet Count 72 10^3/cmm (157-399); Red Cell Distribution Width 15.6 % (12.1-15.1)
[2023-08-21 12:04] LABS: Glucose Point of Care 170 mg/dL (70-110)
[2023-08-21 12:11] LABS: Alanine Aminotransferase 14 U/L (0-33); Alkaline Phosphatase 97 U/L (35-105); Anion Gap 11.6 (5-19); Aspartate Amino Transferase 13 U/L (0-32); Blood Urea Nitrogen 10 mg/dL (8-23); Calcium 8.4 mg/dL (8.5-10.5); Carbon Dioxide 21 mmol/L (22-29); Chloride 105 mmol/L (98-107); Creatinine Clr Calc Pharmacy 124.1222; Globulin 2.5 g/dL (1.3-4.6); Glomerular Filtration Rate 101.3 mL/min (90-130); Glucose 175 mg/dL (65-115); Osmolality Calculated 281 mOsm/kg (285-295); Potassium 3.6 mmol/L (3.5-5.1); Sodium 134 mmol/L (136-145); Total Bilirubin 0.3 mg/dL (0.15-1.2); Total Protein 4.5 g/dL (6.6-8.7)
--- NOTE | 2023-08-21 12:20 | PC.NURSE ---
Robert, pt's , took pt's stuffed full purse and other little black bag home today.
[2023-08-21] MEDS: insulin lispro 100 unit/1 mL SUBCUT ×2 (12:26→17:32)
--- NOTE | 2023-08-21 12:53 | PC.NURSE ---
Pt out of bed to chair at 1215. She is already asking to lie back down in bed. Encouraged pt to sit up longer to improved her muscle strength and stamina.
--- NOTE | 2023-08-21 13:48 | PC.NURSE ---
Report called to [facility] and given to Mario.
--- NOTE | 2023-08-21 14:00 | PC.NURSE ---
Pt transferred to [facility] [place]. ADL supplies/belongings with pt. Further update given to Mario. PT had BM last night, just smearing today. Pt needs milk to help her get her pills down. Dr Garland is award of the low phosphorus.
--- NOTE | 2023-08-21 15:30 | P.PN_ITS ---
Subjective 2 Subjective: No events overnight. Reports feeling better today. Denies pain or problem today. Medications: Reviewed: Yes Vitals/I&O/Wt Last Vital Signs Temp 98.9 F 08/21/23 07:54 Pulse 81 08/21/23 12:00 Resp 19 H 08/21/23 12:00 BP 97/50 08/21/23 12:00 Pulse Ox 99 08/21/23 12:00 O2 Del Method Room Air 08/21/23 12:00 O2 Flow Rate 4 08/17/23 17:56 08/21/23 08/21/23 08/21/23 06:59 14:59 22:59 Intake Total 600 / 600 Output Total 350 / 1200 Balance -350 / 558.75 600 / 600 Weight last 48 hrs Weight 178 lb 4.8 oz Weight 173 lb 1.6 oz Physical Exam 2 Narrative: General: Cooperative patient in no apparent distress. Well developed. more alert today. HEENT: Normocephalic, Atraumatic. External ears normal. Nasal passages patent without drainage. MMM. Heart: Tachycardic with regular rhythm. Resp: LCTA. No respiratory distress, no use of accessory muscles. Abd: Soft, non-tender. Non-distended. Extremities: No edema. Skin: No rash or lesions on exposed areas. Neuro: No focal motor or sensory loss. Urinary Catheter Management: Marrero: Cath Placed During This Visit: yes Reason for Continuing Indwelling Catheter: Accurate Measurement of Urinary Output in Critically Ill Patients Urinary Catheter Date of Insertion: 08/17/23 Urinary Catheter Time of Insertion: 16:35 Data 08/21/23 11:18 08/21/23 11:18 A&P Assessment and plan (1) Diabetic keto-acidosis: Qualifiers: Diabetes mellitus type: type 2 Diabetes mellitus complication detail: [facility] coma Qualified Code(s): E11.11 - Type 2 diabetes mellitus with ketoacidosis with coma (2) Atrial fibrillation and flutter: (3) Acute kidney injury: (4) Acute alteration in mental status: (5) Thrombocytopenia: (6) Hypernatremia: (7) High anion gap metabolic acidosis: Plan 63-year-old female admitted for altered mental status, diabetic ketoacidosis, hyponatremia and thrombocytopenia. Transfer to the floor today. Her oral intake has improved. Continue CC diet. Labs and sugars are improved. Will change insulin regimen to her Lantus, and sliding scale insulin. Will check sugars before meals and at bedtime. Continue nystatin powder for candidiasis. Continue PT. Phos is low, will replace with IV solution. Unable to tolerate PO phos tablet. Mag still low, will replace and recheck in am. Recheck am labs. Code Status: Full IVF: None DVT PPx: Lovenox GI PPx: Protonix ABx: None Diet: Carb consistent Discharge plan: Home when appropriate Attestations 2 Medical Necessity Statement*: Requires further hospitalization for management of altered mental status in setting of diabetic ketoacidosis, hypernatremia, atrial fibrillation while patient's oral intake is started and insulin drip was transitioned to subcu insulin while managing electrolyte abnormalities Coding Level of Care Code Acute Code for Chg Fwd Moderate MDM includes number and complexity of problems actively addressed during encounter, amount and/or complexity of data reviewed/ordered and described risk of complication, morbidity or mortality of management as documented Diagnoses Diabetic ketoacidosis with coma associated with type 2 diabetes mellitus E11.11 Diabetes mellitus type: type 2 Diabetes mellitus complication detail: with coma Atrial fibrillation and flutter I48.91; I48.92 Acute kidney injury N17.9 Acute alteration in mental status R41.82 Thrombocytopenia D69.6 Hypernatremia E87.0 High anion gap metabolic acidosis E87.29
[2023-08-21 16:18] LABS: Glucose Point of Care 148 mg/dL (70-110)
[2023-08-21 20:47] LABS: Glucose Point of Care 133 mg/dL (70-110)
[2023-08-22] VITALS (8 sets, daily range): BP systolic 95–127; BP diastolic 67–80; PULSE 88–110; RESP 17–19; TEMP 36.2–36.9; O2SAT 95–97
[2023-08-22 04:02] LABS: Basophils % 0.5 %; Eosinophils # 0.1 10^3/uL (0.0-0.8); Eosinophils % 1.1 %; Hematocrit 35.3 % (36-47); Lymphocytes # 1.3 10^3/uL (0.8-4.8); Lymphocytes % 15.4 %; Mean Corpuscular HGB Conc 33.1 g/dL (30-55); Mean Corpuscular Hemoglobin 31.1 pg (27-33); Mean Corpuscular Volume 93.9 fl (85-98); Mean Platelet Volume 12.2 fL (7.4-10.4); Monocytes % 11.6 %; Neutrophils # 5.79 10^3/uL (1.8-7.7); Neutrophils % 68.4 %; Nucleated Red Blood Cells % 0.5 %; Platelet Count 83 10^3/cmm (157-399); Red Blood Count 3.76 10^6/uL (3.85-5.65); Red Cell Distribution Width 15.5 % (12.1-15.1); White Blood Count 8.45 10^3/uL (3.29-11.43)
[2023-08-22 04:23] LABS: Alanine Aminotransferase 18 U/L (0-33); Albumin Level 2.1 g/dL (3.5-5.2); Alkaline Phosphatase 115 U/L (35-105); Blood Urea Nitrogen 9 mg/dL (8-23); Calcium 8.5 mg/dL (8.5-10.5); Carbon Dioxide 23 mmol/L (22-29); Chloride 107 mmol/L (98-107); Creatinine Clr Calc Pharmacy 124.1222; Globulin 2.6 g/dL (1.3-4.6); Glomerular Filtration Rate 101.3 mL/min (90-130); Glucose 121 mg/dL (65-115); Magnesium 1.6 mg/dL (1.7-2.3); Osmolality Calculated 290 mOsm/kg (285-295); Phosphorus 1.6 mg/dL (2.5-4.5); Sodium 140 mmol/L (136-145); Total Bilirubin 0.4 mg/dL (0.15-1.2); Total Protein 4.7 g/dL (6.6-8.7)
[2023-08-22 04:28] LABS: Anion Gap 14.4 (5-19); Aspartate Amino Transferase 22 U/L (0-32); Potassium 4.4 mmol/L (3.5-5.1)
[2023-08-22 06:46] LABS: Glucose Point of Care 157 mg/dL (70-110)
[2023-08-22] MEDS: pantoprazole 40 mg SDV IVP (08:32)
[2023-08-22] MEDS: folic acid 1 mg Tablet PO (08:32)
[2023-08-22] MEDS: enoxaparin 100 mg/mL Syringe SUBCUT (08:32)
[2023-08-22] MEDS: metoprolol tartrate 25 mg Tablet PO (08:32)
[2023-08-22] MEDS: insulin lispro 100 unit/1 mL SUBCUT (08:46)
[2023-08-22] MEDS: nystatin powder 15 gm Btl 1 APPLIC TOPICAL (08:47)
[2023-08-22] MEDS: insulin glargine 100 units/1 mL 40 UNIT SUBCUT (08:47)
--- NOTE | 2023-08-22 10:56 | P.DS_ITS ---
Discharge Providers Date of Admission: 08/17/23 21:41 Date of Discharge: August 22, 2023 Attending Provider at Admission: Mariya Yoder MD Attending Provider at Discharge: Hussain Vincent MD Primary Care Provider: WALI Contreras Diagnoses at Discharge Discharge Diagnosis (1) Diabetic keto-acidosis: Status: Acute Qualifiers: Diabetes mellitus type: type 2 Diabetes mellitus complication detail: with coma Qualified Code(s): E11.11 - Type 2 diabetes mellitus with ketoacidosis with coma (2) Atrial fibrillation and flutter: Status: Acute (3) Acute kidney injury: Status: Acute (4) Acute alteration in mental status: Status: Acute (5) Thrombocytopenia: Status: Acute (6) Hypernatremia: Status: Acute (7) High anion gap metabolic acidosis: Status: Acute Reason for Visit Reason for Visit: AMS UTI Hospital Course Hospital Course 63-year-old female who was admitted for management evaluation of DKA, patient stopped taking insulin at home, she takes Eliquis for her DVT, her thrombocytopenia was severe at admission which was around 14,000, it improved to 84,000 at the time of discharge, there is no sign of uremia, she is not anemic, normal hemoglobin, concern for TTP or DIC is minimal at this point, I will request LDH, peripheral smear and have her follow-up with Dr. Pineda outpatient will ask her to stop Eliquis until evaluated by tavern car attendant. No active bleeding. Patient was made well aware that now she will be at risk of stroke because we are holding her Eliquis she has been taking this anticoagulating agent for DVT and A-fib. Will give her p.o. regimen to replenish magnesium and phosphorus. Echo: Grade 1 diastolic function. Physical Exam Narrative: Awake and alert No active signs of fluid overload morbidly obese difficult to assess volume status however no active chest pain or shortness of breath DC 50 Currently on room air A-fib without RVR Nonfocal neuroexam Urinary Catheter Management: Marrero: Cath Placed During This Visit: yes Reason for Continuing Indwelling Catheter: Acute Urinary Retention or Obstruction Urinary Catheter Date of Insertion: 08/17/23 Urinary Catheter Time of Insertion: 16:35 Discharge Data Studies Completed and Pending Completed Studies During Hospitalization Category Date Time Status CT head wo con* [id number] Stat Cat Scan 08/17/23 19:01 Completed CXRP [XR chest 1V portable [id number]] Routine Exams 08/18/23 10:29 Completed CXRP [XR chest 1V portable [id number]] Urgent Exams 08/18/23 11:26 Completed XR chest 1V portable [id number] Stat Exams 08/17/23 17:50 Completed CV. echo complete* [id number] Routine Ultrasound 08/18/23 15:44 Completed Pending at discharge Category Date Time Status Blood Culture Stat Lab 08/17/23 18:25 Results Fibrinogen Degradation Product Routine Lab 08/17/23 23:55 Received Radiology Impressions Head CT 08/17/23 19:01 IMPRESSION: Patchy deep white matter hypodensities are nonspecific though typical of small vessel chronic ischemic disease. Laboratory Results WBC 8.45 10^3/uL (3.29-11.43) 08/22/23 02:49 RBC 3.76 10^6/uL (3.85-5.65) L 08/22/23 02:49 Hgb 11.70 g/dL (11.27-16.99) 08/22/23 02:49 Hct 35.3 % (36-47) L 08/22/23 02:49 MCV 93.9 fl (85-98) 08/22/23 02:49 MCH 31.1 pg (27-33) 08/22/23 02:49 MCHC 33.1 g/dL (30-55) 08/22/23 02:49 RDW 15.5 % (12.1-15.1) H 08/22/23 02:49 Plt Count 83 10^3/cmm (157-399) L 08/22/23 02:49 MPV 12.2 fL (7.4-10.4) H 08/22/23 02:49 Neut % (Auto) 68.4 % 08/22/23 02:49 Lymph % (Auto) 15.4 % 08/22/23 02:49 [place] % (Auto) 11.6 % 08/22/23 02:49 Eos % (Auto) 1.1 % 08/22/23 02:49 Baso % (Auto) 0.5 % 08/22/23 02:49 Neut # (Auto) 5.79 10^3/uL (1.8-7.7) 08/22/23 02:49 Lymph # (Auto) 1.3 10^3/uL (0.8-4.8) 08/22/23 02:49 [place] # (Auto) 1.0 10^3/uL (0.2-0.9) H 08/22/23 02:49 Eos # (Auto) 0.1 10^3/uL (0.0-0.8) 08/22/23 02:49 Baso # (Auto) 0.0 10^3/uL (0.0-0.1) 08/22/23 02:49 Nucleated RBC % (auto) 0.5 % 08/22/23 02:49 Nucleated RBCs # 0.0 /100WBC 08/22/23 02:49 Peripher Smr Path Cons Sent for review 08/17/23 23:45 PT 14.90 SECONDS (12.1-14.9) 08/17/23 23:45 INR 1.13 (0.8-1.2) 08/17/23 23:45 APTT 25.1 SECONDS (23.9-36.7) 08/17/23 23:45 Fibrinogen 332 mg/dL (174-498) 08/17/23 23:45 D-Dimer 1.63 ug/mLFEU (0-0.59) H 08/17/23 23:45 Specimen Type Arterial 08/17/23 19:21 Sample Site Brachial, right 08/17/23 19:21 ABG pH 7.09 (7.35-7.45) L* 08/17/23 19:21 ABG pCO2 16.3 mmHg (35-45) L* 08/17/23 19:21 ABG pO2 112.0 mmHg (80.0-100.0) H 08/17/23 19:21 ABG HCO3 4.9 mmol/L (22-26) L 08/17/23 19:21 ABG O2 Saturation 98.4 08/17/23 19:21 ABG Base Excess -22.7 mmol/L (-2.0-2.0) L 08/17/23 19:21 Darci Test N/a 08/17/23 19:21 A-a O2 Gradient 1.7 mmHg (5-10) L 08/17/23 19:21 Hematocrit 53.0 % (37-47) H 08/17/23 19:21 Hgb O2 Saturation 97.0 % (95-100) 08/17/23 19:21 Carboxyhemoglobin 0.9 %THgb (0.4-20.1) 08/17/23 19:21 Methemoglobin 0.5 % (0.4-1.5) 08/17/23 19:21 Total Hemoglobin 17.3 g/dL (12-16) H 08/17/23 19:21 Sodium 145.0 mmol/L (131-143) H 08/17/23 19:21 Potassium 4.8 mmol/L (3.5-5.0) 08/17/23 19:21 Glucose 568.0 mg/dL (70-115) H 08/17/23 19:21 Ionized Calcium 1.6 mmol/L (1.1-1.4) H 08/17/23 19:21 O2 Delivery Device Room air 08/17/23 19:21 Child Protective Services Social Worker ID [email or web address] 08/17/23 19:21 Sodium 140 mmol/L (136-145) 08/22/23 02:49 Potassium 4.4 mmol/L (3.5-5.1) 08/22/23 02:49 Chloride 107 mmol/L (98-107) 08/22/23 02:49 Carbon Dioxide 23 mmol/L (22-29) 08/22/23 02:49 Anion Gap 14.4 (5-19) 08/22/23 02:49 BUN 9 mg/dL (8-23) 08/22/23 02:49 Creatinine 0.6 mg/dL (0.5-0.9) 08/22/23 02:49 GFR Calculation 101.3 mL/min (90-130) 08/22/23 02:49 Glucose 121 mg/dL (65-115) H 08/22/23 02:49 POC Glucose 157 mg/dL (70-110) H 08/22/23 06:32 Estimat Average Glucose 206 08/17/23 23:45 Hemoglobin A1c 8.8 % (4.0-6.0) H 08/17/23 23:45 Calculated Osmolality 290 mOsm/kg (285-295) 08/22/23 02:49 Lactic Acid 1.4 mmol/L (0.5-2.2) 08/17/23 18:53 Calcium 8.5 mg/dL (8.5-10.5) 08/22/23 02:49 Phosphorus 1.6 mg/dL (2.5-4.5) L 08/22/23 02:49 Magnesium 1.6 mg/dL (1.7-2.3) L 08/22/23 02:49 Iron 31 ug/dL (37-145) L 08/18/23 07:48 TIBC 155 mcg/dl 08/18/23 07:48 % Saturation 20.0 % (20-50) 08/18/23 07:48 Unsat Iron Binding 124 ug/dL (112-347) 08/18/23 07:48 Total Bilirubin 0.4 mg/dL (0.15-1.2) 08/22/23 02:49 AST 22 U/L (0-32) 08/22/23 02:49 ALT 18 U/L (0-33) 08/22/23 02:49 Alkaline Phosphatase 115 U/L (35-105) H 08/22/23 02:49 Troponin T Baseline 34 ng/L (0-10) H 08/17/23 18:53 Troponin T 120 Minute 32.71 ng/L (0-10) H 08/17/23 21:07 Delta Troponin T -1.29 ABS# (0-10) L 08/17/23 21:07 Troponin T Hi Sens 6Hr 30.57 ng/L (0-10) H 08/17/23 23:45 Troponin T Hi Sens 6Hr Delta -3.43 ng/L (0-12) L 08/17/23 23:45 Total Protein 4.7 g/dL (6.6-8.7) L 08/22/23 02:49 Albumin 2.1 g/dL (3.5-5.2) L 08/22/23 02:49 Globulin 2.6 g/dL (1.3-4.6) 08/22/23 02:49 Triglycerides 200 mg/dL (0-150) H 08/19/23 01:55 Cholesterol 172 mg/dL (0-200) 08/19/23 01:55 LDL Cholesterol, Calc 86 mg/dL (50-129) 08/19/23 01:55 Total VLDL Cholesterol 40 mg/dL (0-30) H 08/19/23 01:55 HDL Cholesterol 46 mg/dL (60-100) L 08/19/23 01:55 Cholesterol/HDL Ratio 3.74 mg/dL (0.0-4.40) 08/19/23 01:55 Vitamin B12 1276 pg/mL (232-1245) H 08/18/23 07:48 Folate 3.1 ng/mL (4.8-37.3) L 08/19/23 05:47 Procalcitonin 0.10 ng/mL (0-0.5) 08/17/23 18:53 TSH 0.52 uIU/mL (0.27-4.20) 08/18/23 07:48 Urine Color Yellow (Yellow) 08/17/23 18:41 Urine Appearance Clear (CLEAR) 08/17/23 18:41 Urine pH 6 (5-7) 08/17/23 18:41 Ur Specific [place] 1.015 (1.005-1.030) 08/17/23 18:41 Urine Protein 1+ (Negative) H 08/17/23 18:41 Urine Glucose (UA) 4+ (Normal) H 08/17/23 18:41 Urine Ketones 3+ (Negative) H 08/17/23 18:41 Urine Blood 3+ (Negative) H 08/17/23 18:41 Urine Nitrate Negative (Negative) 08/17/23 18:41 Urine Bilirubin Neg (Negative) 08/17/23 18:41 Urine Urobilinogen Norm mg/dL (Negative) 08/17/23 18:41 Ur Leukocyte Esterase Negative (Negative) 08/17/23 18:41 Urine RBC 0-4 /hpf (0-2) H 08/17/23 18:41 Urine WBC 0-4 /hpf (0-5) H 08/17/23 18:41 Ur Squamous Epith Cells 0-4 /hpf (0-5) H 08/17/23 18:41 Amorphous Sediment Not Reportable 08/17/23 18:41 Urine Bacteria None /hpf (NONE) 08/17/23 18:41 Urine Mucus None /hpf 08/17/23 18:41 Serum Ketones Positive (Negative) H 08/17/23 18:53 Hepatitis A IgM Ab Non-reactive (Nonreactive) 08/17/23 23:45 Hep Bs Antigen Non-reactive (Nonreactive) 08/17/23 23:45 Hep Bs Antibody < 3.5 (11.5-1000) L 08/17/23 23:45 Hep B Core Total Ab Non-reactive (Nonreactive) 08/17/23 23:45 Hepatitis C Antibody Non-reactive (Nonreactive) 08/17/23 23:45 HIV 1&2 Ab & HIV 1 Ag Non-reactive (Non-Reactiv) 08/17/23 23:45 HIV 1&2 Antibody Non-reactive (Non-Reactiv) 08/17/23 23:45 Blood Type O Positive 08/17/23 23:45 Rho(D) Type Rh positive 08/17/23 23:45 Antibody Screen Negative 08/17/23 23:45 Vitals Last Vital Signs Temp 98.2 F 08/22/23 07:14 Pulse 110 H 08/22/23 08:15 Resp 18 08/22/23 07:14 BP 127/80 08/22/23 07:14 Pulse Ox 97 08/22/23 08:15 O2 Del Method Room Air 08/22/23 08:15 O2 Flow Rate 4 08/17/23 17:56 Discharge Plan Discharge Patient Disposition: Home Condition: Stable Prescriptions: New metoprolol tartrate 25 mg Tablet 25 mg PO BID@0900,2100 Qty: 60 3RF magnesium 250 mg tablet 250 mg PO DAILY Qty: 20 0RF X-Zoyn-Nvozrch 250 mg tablet 1 tab PO BID Qty: 20 0RF Continued pioglitazone 15 mg tablet 15 mg PO DAILY metformin 500 mg tablet 500 mg PO BID lisinopril 10 mg tablet 10 mg PO DAILY gabapentin 100 mg capsule 100 mg PO TID insulin asp prt-insulin aspart [Novolog Mix 70-30FlexPen U-100] 100 unit/mL (70-30) insulin pen See Rx Instructions .ROUTE .COMPLEX Rx Instructions: Take 30 units subcutaneously in the morning and 25 units in the evening at dinner. rosuvastatin 40 mg tablet 40 mg PO DAILY fenofibrate nanocrystallized 145 mg tablet 145 mg PO DAILY insulin glargine [Lantus Solostar U-100 Insulin] 100 unit/mL (3 mL) insulin pen 120 unit SUBCUT BEDTIME cefdinir 300 mg capsule 300 mg PO BID 10 Days Qty: 20 0RF Discontinued celecoxib 200 mg capsule 200 mg PO DAILY PRN (Reason: INFLAMMATION OR PAIN) Eliquis 5 mg tablet 5 mg PO BID Discharge Orders: Discharge Order (Routine); Ordered 08/22/23 Ordered By: Hussain Vincent Referrals: Jamie Kendall FNP [Primary Care Provider] - Austin Pineda MD [Hospitalist] - 1 week Discharge Diet: Diabetic Patient Instructions: Altered Mental Status (ED), Opioid Safety Discharge Attestations Time Spent in Discharge Care*: greater than 30 min Quality Metrics Clinical Quality Measures [ No reported AMI, CVA or VTE this stay] Coding Level of Care Code Acute Code for Chg Fwd Diagnoses Diabetic ketoacidosis with coma associated with type 2 diabetes mellitus E11.11 Diabetes mellitus type: type 2 Diabetes mellitus complication detail: with coma Atrial fibrillation and flutter I48.91; I48.92 Acute kidney injury N17.9 Acute alteration in mental status R41.82 Thrombocytopenia D69.6 Hypernatremia E87.0 High anion gap metabolic acidosis E87.29
[2023-08-22 11:38] LABS: Glucose Point of Care 185 mg/dL (70-110)
[2023-08-22 11:43] LABS: LAB Peripheral Smear Sent for Review
[2023-08-22 12:44] LABS: Lactate Dehydrogenase 397 U/L (135-214)
--- NOTE | 2023-08-22 14:08 | PC.NURSE ---
Patient is A&Ox3. Respirations even and non-labored on room air. Reviewed patient discharge with patient and family. Patient and daughter verbalized understanding. Patient has voided since the removal of her catheter. Patient's IV and PICC line were removed at 1350. No active bleeding noted at either site. Patient wheel chaired to private car.
[2023-08-23 12:10] LABS: Lymes IGG WB <0.90 index
[2023-08-24 20:20] LABS: Fibrinogen Degradation Product <5 mcg/mL (LESS THAN 5)
[2023-08-27 03:16] LABS: Heparin Induced Platelet AB POSITIVE (NEGATIVE); Patient O.D 0.618
[2023-09-01 02:54] LABS: UFH High Dose, 100 IU/ML 0 % release; UFH Low Dose, 0.1 IU/ML 0 % release; UFH Low Dose, 0.5 IU/ML 0 % release; UFH SRA Result NEGATIVE (NEGATIVE)
== END 2023-08-22 14:08 | disposition home or self-care (01) | DRG 637 ==
LOC: ER 21:23 → ICU 21:41 → MEDSURG 08-21 14:01
PROVIDERS: Family Medicine; Student in an Organized Health Care Education/Training Program; Admitting Provider Student in an Organized Health Care Education/Training Program; Emergency Provider Internal Medicine; PCP Nurse Practitioner; Visit Provider Internal Medicine
DX: E11.11 Type 2 diabetes mellitus with ketoacidosis with coma (principal); J18.9 Pneumonia, unspecified organism; N39.0 Urinary tract infection, site not specified; N17.9 Acute kidney failure, unspecified; E11.01 Type 2 diabetes mellitus with hyperosmolarity with coma; I10 Essential (primary) hypertension; D69.6 Thrombocytopenia, unspecified; I48.91 Unspecified atrial fibrillation; B37.9 Candidiasis, unspecified; E87.6 Hypokalemia; E83.41 Hypermagnesemia; Z79.4 Long term (current) use of insulin; Z79.84 Long term (current) use of oral hypoglycemic drugs; Z79.01 Long term (current) use of anticoagulants; Z86.718 Personal history of other venous thrombosis and embolism; Z86.16 Personal history of COVID-19; Z87.440 Personal history of urinary (tract) infections
CPT/HCPCS: 36415; 36416; 36573; 36592; 36600; 51702; 70450; 71045; 80048; 80051; 80053; 80061; 80503; 81001; 82009; 82330; 82607; 82746; 82805; 82962; 83036; 83540; 83550; 83605; 83615; 83735; 84100; 84145; 84443; 84484; 85025; 85362; 85378; 85384; 85610; 85730; 86617; 86705; 86706; 86709; 86803; 86850; 86900; 87040; 87340; 87806; 93005; 93306; 96365; 96366; 96367; 96372; 96375; 96376; 97116; 97161; 97530; 99291; C1751; C9113; J1650; J1815; J2405; J3475; J3480; J3490; J7042; J7050; J7070; J7799

== ENCOUNTER 2023-09-21 10:45 | Outpatient (CLI) | payer MEDICAID, SELFPAY ==
--- NOTE | 2023-09-21 10:53 | USCV_ITS ---
Krista Rutherford Age: 63 Gender: F : 1960 Exam Date: 09/21/2023 10:57 Ordering Phys: Jamie Kendall Technologist: RENETTA Exam Location: [facility] – [place] Indication: LE PAIN HISTORY: Lower extremity pain. PROCEDURES: Venous duplex imaging was performed in only the right lower extremity. The following venous structures were evaluated: common femoral vein, profunda vein, proximal portion of the greater saphenous vein, superficial femoral vein, and the popliteal vein. In addition, the posterior tibial and peroneal trunk were evaluated. Serial compression, augmentation maneuvers, and spectral Doppler flow evaluation were performed. FINDINGS: HX OF DVT. WAS ON ELIQUIS UP UNTIL 1 MONTH AGO APPEARS TO HAVE AN ACUTE DVT STARTING IN THE CFV EXTENDING DISTALLY TO THE PTV CONCLUSIONS Occlusive DVT RIGHT common femoral vein extending distally into the PTV Preliminary report to provider by guest service agent at time of exam Wes Costello MD (Electronically Signed) Final Date: 21 September 2023 11:48 S
== END 2023-09-21 10:46 | disposition home or self-care (01) ==
LOC: RAD 10:46
PROVIDERS: PCP Nurse Practitioner; Visit Provider Nurse Practitioner
DX: M79.661 Pain in right lower leg (principal); I48.91 Unspecified atrial fibrillation; Z86.718 Personal history of other venous thrombosis and embolism
CPT/HCPCS: 93971

== ENCOUNTER 2023-09-21 12:02 | Emergency (ER) | payer MEDICAID, SELFPAY ==
[2023-09-21] VITALS (13 sets, daily range): BP systolic 139–172; BP diastolic 76–109; PULSE 69–82; RESP 13–18; TEMP 36.6; O2SAT 95–99
--- NOTE | 2023-09-21 12:32 | ED_ITS ---
HPI - Extremity Problem 2 General: Chief complaint: Extremity Problem,Nontraumatic Stated complaint: right leg pain Time Seen by Provider: 09/21/23 12:11 Source: patient Mode of arrival: ambulatory Limitations: no limitations History of Present Illness: 63-year-old female states she has had so me right leg swelling for the last 5 to 6 days she had an outpatient ultrasound today that showed a DVT. She states she used to be on Eliquis had some thrombocytopenia and they stopped it. She denies any chest pain she denies any shortness of breath. Associated symptoms: Deny chest pain, fever(s) or rash Review of Systems 2 Const: Denies: fever(s) or chills ENMT: Denies: throat pain or dental pain Card: Denies: chest pain Resp: Denies: dyspnea GI: Denies: abdominal pain, nausea, vomiting or diarrhea Musc: Reports: extremity pain; Denies: neck pain or back pain Skin/Breast: Denies: rash Neuro: Denies: headache(s) PFSH ED 2 PFSH: Medical History Acute kidney injury High anion gap metabolic acidosis Hypernatremia Atrial fibrillation and flutter Thrombocytopenia Diabetic keto-acidosis Diabetic ketoacidosis associated with type 1 diabetes mellitus Acute alteration in mental status Hypertension Diabetes Physical Exam 2 Const: COMMON NORMALS: no acute distress, patient oriented x3 and healthy appearing HENMT: COMMON NORMALS: normocephalic and atraumatic HEAD & SCALP: n ormocephalic and atraumatic Neck/C-Spine: COMMON NORMALS: full ROM and supple Chest: COMMONS NORMALS: normal inspection of the chest Resp: COMMON NORMALS: normal respiratory effort Cardio: COMMON NORMALS: regular rate, regular rhythm and No murmurs present (Cardio) RATE: regular rate RHYTHM: regular rhythm GI: COMMON NORMALS: Normal to inspection, nondistended, normoactive bowel sounds present, Soft to palpation, non-tender and no masses PALPATION: Yes Soft to palpation Extremity: COMMON NORMALS: full ROM NARRATIVE EXTREMITY EXAM: Some slight swelling to right lower leg distal pulses sensation intact. Neuro: COMMON NORMALS: patient oriented x3, moves all extremities and no focal motor deficits Psych: COMMON NORMALS: mental status grossly normal, Normal thought process present and cooperative THOUGHT PROCESS: Normal thought process present Skin: COMMON NORMALS: no rashes or lesions noted and no wounds GENERAL SKIN EXAM: no rashes or lesions noted Course 2 Vital Signs: Vital signs: Vital Signs Temperature 98 F 09/21/23 12:06 Pulse Rate 82 09/21/23 13:00 Respiratory Rate 13 09/21/23 13:00 Blood Pressure 139/76 09/21/23 13:00 Pulse Oximetry 96 09/21/23 13:00 Oxygen Delivery Me thod Room Air 09/21/23 12:06 MDM - Extremity (Nontraumatic) Medical Decision Making Patient presents with a DVT will start her on Xarelto her platelet level here is normal she is follow-up with PCP return if worsening she has no shortness of breath no signs of PE. Medical Records I reviewed the patient's medical records. Lab Data I reviewed the patient's lab results. 09/21/23 12:58 Laboratory Results WBC 6.19 10^3/uL (3.29-11.43) 09/21/23 12:58 RBC 4.56 10^6/uL (3.85-5.65) 09/21/23 12:58 Hgb 13.80 g/dL (11.27-16.99) 09/21/23 12:58 Hct 45.9 % (36-47) 09/21/23 12:58 MCV 100.7 fl (85-98) H 09/21/23 12:58 MCH 30.3 pg (27-33) 09/21/23 12:58 MCHC 30.1 g/dL (30-55) 09/21/23 12:58 RDW 16.0 % (12.1-15.1) H 09/21/23 12:58 Plt Count 263 10^3/cmm (157-399) 09/21/23 12:58 MPV 9.6 fL (7.4-10.4) 09/21/23 12:58 Neut % (Auto) 52.4 % 09/21/23 12:58 Lymph % (Auto) 34.1 % 09/21/23 12:58 [place] % (Auto) 10.3 % 09/21/23 12:58 Eos % (Auto) 1.3 % 09/21/23 12:58 Baso % (Auto) 1.3 % 09/21/23 12:58 Neut # (Auto) 3.24 10^3/uL (1.8-7.7) 09/21/23 12:58 Lymph # (Auto) 2.1 10^3/uL (0.8-4.8) 09/21/23 12:58 [place] # (Auto) 0.6 10^3/uL (0.2-0.9) 09/21/23 12:58 Eos # (Auto) 0.1 10^3/uL (0.0-0.8) 09/21/23 12:58 Baso # (Auto) 0.1 10^3/uL (0.0-0.1) 09/21/23 12:58 Nucleated RBC % (auto) 0 % 09/21/23 12:58 Nucleated RBCs # 0.0 /100WBC 09/21/23 12:58 No radiology studies performed this visit Discharge Plan Discharge Patient Disposition: Home Clinical Impression: Deep vein thrombosis of lower extremity Condition: Stable Prescriptions: New Xarelto 15 mg tablet 15 mg PO BID 21 Days Qty: 42 0RF Rx Instructions: must administer with a meal/food Xarelto 20 mg tablet 20 mg PO DAILY Qty: 30 0RF Rx Instructions: must administer with evening meal No Action Celebrex 200 mg Capsule 200 mg PO DAILY PRN (Reason: Pain) diclofenac sodium 50 mg Tablet,Delayed Release (Dr/Ec) 50 mg PO BID metoprolol tartrate 25 mg tablet 25 mg PO BID pioglitazone 15 mg tablet 15 mg PO DAILY metformin 500 mg tablet 500 mg PO BID gabapentin 100 mg capsule 100 mg PO TID insulin asp prt-insulin aspart [Novolog Mix 70-30FlexPen U-100] 100 unit/mL (70-30) insulin pen See Rx Instructions .ROUTE .COMPLEX Rx Instructions: Take 25 units subcutaneously in the morning and 30 units at lunch rosuvastatin 40 mg tablet 40 mg PO BEDTIME fenofibrate nanocrystallized 145 mg tablet 145 mg PO QPM insulin glargine [Lantus Solostar U-100 Insulin] 100 unit/mL (3 mL) insulin pen 60 unit SUBCUT BEDTIME Discharge Orders: Discharge ED (Routine); Ordered 09/21/23 Ordered By: Yanelis De La Paz Referrals: Jamie Kendall, SOCIAL MEDIA STRATEGIST [Primary Care Provider] - 1-3 days Discharge Diet: Advance as tolerated Discharge Activity: Resume usual activity Patient Instructions: Deep Vein Thrombosis (ED) Coding Level of Care Code ED Regional Sales Leader for Marta Alvarez
[2023-09-21 13:11] LABS: Basophils # 0.1 10^3/uL (0.0-0.1); Basophils % 1.3 %; Eosinophils # 0.1 10^3/uL (0.0-0.8); Eosinophils % 1.3 %; Hematocrit 45.9 % (36-47); Lymphocytes # 2.1 10^3/uL (0.8-4.8); Lymphocytes % 34.1 %; Mean Corpuscular HGB Conc 30.1 g/dL (30-55); Mean Corpuscular Hemoglobin 30.3 pg (27-33); Mean Corpuscular Volume 100.7 fl (85-98); Mean Platelet Volume 9.6 fL (7.4-10.4); Monocytes # 0.6 10^3/uL (0.2-0.9); Monocytes % 10.3 %; Neutrophils # 3.24 10^3/uL (1.8-7.7); Neutrophils % 52.4 %; Nucleated Red Blood Cells % 0 %; Platelet Count 263 10^3/cmm (157-399); Red Blood Count 4.56 10^6/uL (3.85-5.65); White Blood Count 6.19 10^3/uL (3.29-11.43)
--- NOTE | 2023-09-21 13:13 | PC.PHAR ---
Addendum entered by Kenyetta Henderson 09/21/23 13:17: pt states uses 60units hs of lantus rx filled for 120 units daily Original Note: pt states she takes care of her own medications-pt states her eliquis 5mg bid and lisinopril 10mg daily was dced about a month ago-pt states no longer taking magnesium or [id number] 250mg bid filled 08/22/23 10d/s-
== END 2023-09-21 14:05 | disposition home or self-care (01) ==
PROVIDERS: Emergency Provider Emergency Medicine; PCP Nurse Practitioner
DX: I82.401 Acute embolism and thrombosis of unspecified deep veins of right lower extremity (principal); Z79.4 Long term (current) use of insulin; Z79.84 Long term (current) use of oral hypoglycemic drugs; E10.9 Type 1 diabetes mellitus without complications; I10 Essential (primary) hypertension
CPT/HCPCS: 36415; 85025; 99283

== ENCOUNTER 2023-10-21 07:57 | Oncology outpatient (recurring) (ONCR) | payer MEDICAID, SELFPAY ==
[2023-10-21 09:51] LABS: Basophils # 0.1 10^3/uL (0.0-0.1); Basophils % 1.1 %; Eosinophils # 0.2 10^3/uL (0.0-0.8); Eosinophils % 3.4 %; Hematocrit 40.6 % (36-47); Lymphocytes # 2.3 10^3/uL (0.8-4.8); Lymphocytes % 40.6 %; Mean Corpuscular HGB Conc 30.3 g/dL (30-55); Mean Corpuscular Hemoglobin 30.4 pg (27-33); Mean Corpuscular Volume 100.5 fl (85-98); Mean Platelet Volume 10.2 fL (7.4-10.4); Monocytes # 0.5 10^3/uL (0.2-0.9); Monocytes % 8.5 %; Neutrophils # 2.59 10^3/uL (1.8-7.7); Neutrophils % 45.9 %; Nucleated Red Blood Cells % 0 %; Platelet Count 208 10^3/cmm (157-399); Red Blood Count 4.04 10^6/uL (3.85-5.65); Red Cell Distribution Width 15.8 % (12.1-15.1); White Blood Count 5.64 10^3/uL (3.29-11.43)
[2023-10-21 10:06] LABS: INR 1.65 (0.8-1.2)
[2023-10-21 10:08] LABS: Partial Thromboplastin Time 36.9 SECONDS (23.9-36.7)
[2023-10-21 10:10] LABS: Alanine Aminotransferase 8 U/L (0-33); Albumin Level 3.6 g/dL (3.5-5.2); Alkaline Phosphatase 74 U/L (35-105); Aspartate Amino Transferase 19 U/L (0-32); Blood Urea Nitrogen 12 mg/dL (8-23); Calcium 8.6 mg/dL (8.5-10.5); Carbon Dioxide 26 mmol/L (22-29); Chloride 107 mmol/L (98-107); Creatinine Clr Calc Pharmacy 105.3533; D Dimer 0.55 ug/mLFEU (0-0.59); Globulin 2.9 g/dL (1.3-4.6); Glomerular Filtration Rate 84.8 mL/min (90-130); Glucose 136 mg/dL (65-115); Osmolality Calculated 296 mOsm/kg (285-295); Sodium 142 mmol/L (136-145); Total Bilirubin 0.3 mg/dL (0.15-1.2); Total Protein 6.5 g/dL (6.6-8.7)
[2023-10-24 14:14] LABS: Lupus Thrombin Clotting Time 20 sec (13-19)
[2023-10-24 14:25] LABS: Lupus DRVVT Confirm NEGATIVE (NEGATIVE); Lupus Hexagonal Phas Confirm WEAKLY POSITIVE (NEGATIVE); PTT-LA-Screen 48 sec (< OR = 40)
[2023-10-25 05:09] LABS: Heparin Induced Platelet AB POSITIVE (NEGATIVE); Patient O.D 0.564
[2023-10-26 01:15] LABS: CARDIOLIPIN AB (IGA) <2.0 APL-U/mL; CARDIOLIPIN AB (IGG) <2.0 GPL-U/mL; CARDIOLIPIN AB (IGM) <2.0 MPL-U/mL
[2023-10-26 04:24] LABS: PROTEIN C, ACTIVITY 154 % normal (70-180)
[2023-10-27 21:15] LABS: Beta 2 Glycoprotein I IGA AB <2.0 U/mL (<20.0)
[2023-10-28 21:25] LABS: UFH High Dose, 100 IU/ML 0 % release; UFH Low Dose, 0.1 IU/ML 0 % release; UFH Low Dose, 0.5 IU/ML 1 % release; UFH SRA Result NEGATIVE (NEGATIVE)
[2023-10-31 20:35] LABS: Factor 5 Leiden Mutation NEGATIVE
[2023-10-31 20:49] LABS: PROTHROMBIN (FACTOR II) 20210G NEGATIVE
[2023-11-10 11:44] LABS: PROTEIN S, ACTIVITY 176
== END 2023-10-25 23:59 | disposition home or self-care (01) ==
PROVIDERS: PCP Nurse Practitioner; Visit Provider Internal Medicine Hematology & Oncology
DX: D69.6 Thrombocytopenia, unspecified (principal); D75.829 Heparin-induced thrombocytopenia, unspecified; I82.401 Acute embolism and thrombosis of unspecified deep veins of right lower extremity; M79.89 Other specified soft tissue disorders; Z79.899 Other long term (current) drug therapy
CPT/HCPCS: 36415; 80053; 81241; 85025; 85210; 85300; 85303; 85306; 85378; 85610; 85613; 85730; 86146; 86147; 99204

== ENCOUNTER 2023-11-07 15:40 | Emergency (ER) | payer MEDICAID, SELFPAY ==
[2023-11-07 15:51] VITALS: BP 150/77; PULSE 98; RESP 16; TEMP 36.8; O2SAT 90
--- NOTE | 2023-11-07 16:29 | USR_ITS ---
PROCEDURE INFORMATION: Exam: US Duplex Right Lower Extremity Veins, Limited Exam date and time: 11/07/2023 4:52 PM Age: 63 years old Clinical indication: Swelling (edema) of limb; Lower extremity, right; Additional info: Dvt TECHNIQUE: Imaging protocol: Real-time duplex ultrasound of the right extremity with 2-D gordillo scale, color Doppler flow and spectral waveform analysis including responses to compression and other maneuvers (when performed) with image documentation. Limited exam was focused on the right lower extremity veins. COMPARISON: No relevant prior studies available. FINDINGS: Right deep veins: There is partially occlusive thrombus involving the common femoral vein in the superficial femoral vein. Superficial veins: Greater saphenous vein at the saphenofemoral junction is patent without thrombus. Soft tissues: Unremarkable. US/[place] [id number] IMPRESSION: DVT involving the right common femoral vein and superficial femoral vein
--- NOTE | 2023-11-07 18:08 | ED_ITS ---
Documented by User: TAMMY Morales 11/07/23 18:17 HPI - Extremity Problem General: Chief complaint: Extremity Problem,Nontraumatic Stated complaint: right leg pain, swollen Time Seen by Provider: 11/07/23 17:53 Source: patient Mode of arrival: ambulatory Limitations: no limitations History of Present Illness: Patient is a 63-year-old female presenting to the emergency department complaining of right lower extremity pain and swelling for the past few months. Back in August, patient was diagnosed with a DVT of the right femoral vein, was started on Xarelto. She does note a history of deep vein thrombosis in the past, though notes she was treated with Eliquis at that time which improved her symptoms for quicker than it has this time around. She was sent to the emergency department by primary care due to the lack of resolution of her symptoms, ultrasound in the waiting room did reveal evidence of retained DVT. However, there appeared to be no change from previous back in August. Additionally, she is not reporting any chest pains, palpitations, or breathing difficulties. She does not note any significant increase of the pain or swelling, just notes that it has not diminished. She is still ambulatory and notes that the pain is not unbearable to where she is unable to walk. No other symptoms to report at this time. MD Complaint: extremity pain and extremity swelling Onset (ago): month(s) Location: right Associated symptoms: Reports no associated symptoms; Deny chest pain, fever(s) or rash Context: other (Diagnosed DVT) Review of Systems General: Reports: 10 or more systems reviewed and unremarkable except in HPI and below Const: Denies: fever(s), chills or fatigue Eyes: Denies: change in vision ENMT: Denies: throat pain, ear or mastoid pain or nasal discharge Card: Denies: chest pain, palpitations, swelling of feet/ankles or lightheadedness Resp: Denies: dyspnea, productive cough or wheezing GI: Denies: abdominal pain, nausea, vomiting, diarrhea or constipation : Denies: flank pain, difficulty voiding, dysuria or urinary frequency Musc: Reports: extremity pain (RLE) and extremity swelling (RLE); Denies: neck pain, back pain or joint pain Skin/Breast: Denies: rash Neuro: Denies: headache(s), numbness in extremities or weakness in extremities PFSH ED PFSH: Medical History Atrial fibrillation and flutter Thrombocytopenia Acute kidney injury High anion gap metabolic acidosis Hypernatremia Diabetic keto-acidosis Diabetic ketoacidosis associated with type 1 diabetes mellitus Acute alteration in mental status Hypertension Diabetes Social History Smoking and tobacco/nicotine status: heavy tobacco/nicotine user cigarettes Packs smoked per day: 1.5 Years cigarettes smoked: 16 Physical Exam Const: COMMON NORMALS: no acute distress, patient oriented x3 and no limitations GENERAL APPEARANCE: cooperative and comfortable NUTRITIONAL APPEARANCE: obese morbidly obese HENMT: COMMON NORMALS: normocephalic and atraumatic HEAD & SCALP: normocephalic and atraumatic Eye: COMMON NORMALS: Equal, round and reactive pupils present and EOMs intact bilaterally PUPIL: Yes Equal, round and reactive pupils present Neck/C-Spine: COMMON NORMALS: full ROM, supple and no JVD Chest: COMMONS NORMALS: normal inspection of the chest and normal palpation of entire chest wall Resp: COMMON NORMALS: normal respiratory effort, No retractions, No use of accessory muscles and clear to auscultation bilaterally EFFORT & INSPECTION: No tachypneic AUSCULTATION: clear to auscultation bilaterally Cardio: COMMON NORMALS: no JVD, regular rate, regular rhythm, S1 normal heart sound present, S2 normal heart sound present, No gallops present (Cardio), No clicks present (Cardio) and No murmurs present (Cardio) RATE: regular rate RHYTHM: regular rhythm HEART SOUNDS: S1 normal heart sound present and S2 normal heart sound present OTHER: Diminished DP/PT pulses right lower extremity, however are palpable. 3+ pedal edema bilaterally. GI: COMMON NORMALS: Normal to inspection, nondistended, normoactive bowel sounds present, Soft to palpation and non-tender INSPECTION: Yes central obesity PALPATION: Yes Soft to palpation Extremity: NARRATIVE EXTREMITY EXAM: Right lower extremity edema as noted previously. Full range of motion. Normal cap refill. Mild tenderness to palpation about the medial calf and thigh. Neuro: COMMON NORMALS: patient oriented x3, moves all extremities, no focal motor deficits and no sensory deficits noted Psych: COMMON NORMALS: mental status grossly normal Skin: COMMON NORMALS: no rashes or lesions noted GENERAL SKIN EXAM: no rashes or lesions noted Course Vital Signs: Vital signs: Vital Signs Temperature 98.3 F 11/07/23 15:51 Pulse Rate 79 11/07/23 18:23 Respiratory Rate 16 11/07/23 15:51 Blood Pressure 176/76 11/07/23 18:23 Pulse Oximetry 95 11/07/23 18:23 Oxygen Delivery Me thod Room Air 11/07/23 15:51 MDM - Extremity (Nontraumatic) Medical Decision Making Patient seen for right lower extremity pain and edema for the past couple months. Was sent by primary care for evaluation. Previously diagnosed with DVT of the right femoral vein in August, and ultrasound today revealed that this is stable. She is not reporting to me any breathing difficulties or palpitations or chest pains. I have low suspicion for pulmonary embolus at this time, and patient is currently on blood thinner. However due to the consistency of her pain and swelling, I did inform her to follow-up with primary care to discuss switching medications or possibly consult with vascular surgery. I did have a very thorough conversation with her in regards to reasons to return, such as if she has any of the aforementioned symptoms of shortness of breath or palpitations. She endorses understanding and will continue to take her medications as prescribed. All other questions and concerns addressed at this time and patient agrees with discharge home. Lab Data Radiology Impressions Venous Duplex 11/07/23 16:29 IMPRESSION: DVT involving the right common femoral vein and superficial femoral vein ADDENDUM: 11/07/23 6934 COMMENT: THIS REPORT CONTAINS FINDINGS THAT MAY BE CRITICAL TO PATIENT CARE. The exam findings were verbally communicated by me to JACOB SHAFFER via telephone conference at 5:54 PM CDT on 11/07/2023. The findings were acknowledged and understood. All radiology interpretation(s) finalized by discharge Discharge Plan Discharge Patient Disposition: Home Clinical Impression: Deep vein thrombosis of lower extremity Qualifiers: Affected thrombotic vein of extremity: femoral Chronicity: chronic Laterality: right Qualified Code(s): I82.511 - Chronic embolism and thrombosis of right femoral vein Condition: Stable Prescriptions: No Action Celebrex 200 mg Capsule 200 mg PO DAILY PRN (Reason: Pain) diclofenac sodium 50 mg Tablet,Delayed Release (Dr/Ec) 50 mg PO BID metoprolol tartrate 25 mg tablet 25 mg PO BID Xarelto 20 mg tablet 20 mg PO DAILY Qty: 30 0RF Rx Instructions: must administer with evening meal pioglitazone 15 mg tablet 15 mg PO DAILY metformin 500 mg tablet 500 mg PO BID gabapentin 100 mg capsule 100 mg PO TID insulin asp prt-insulin aspart [Novolog Mix 70-30FlexPen U-100] 100 unit/mL (70-30) insulin pen See Rx Instructions .ROUTE .COMPLEX Rx Instructions: Take 25 units subcutaneously in the morning and 30 units at lunch rosuvastatin 40 mg tablet 40 mg PO BEDTIME fenofibrate nanocrystallized 145 mg tablet 145 mg PO QPM insulin glargine [Lantus Solostar U-100 Insulin] 100 unit/mL (3 mL) insulin pen 60 unit SUBCUT BEDTIME Discharge Orders: Discharge ED (Routine); Ordered 11/07/23 Ordered By: Eddi Mclain Referrals: Jamie Kendall FNP [Primary Care Provider] - Discharge Diet: Usual diet Discharge Activity: Increase activity as tolerated Patient Instructions: Deep Vein Thrombosis (ED) Activity Restrictions/Additional Instructions: Continue taking your Xarelto and follow-up with primary care this week as discussed. If you develop any new or concerning symptoms, please return immediately for reevaluation. Specifically, monitoring for any breathing difficulties or chest pain. Coding Level of Care Code ED Emergency Medicine Medical Director for Evang Kim Documented by User: Murray Ewing DO 11/08/23 13:59 HPI - Extremity Problem General: Chief complaint: Extremity Problem,Nontraumatic Stated complaint: right leg pain, swollen Time Seen by Provider: 11/07/23 17:53 PFSH ED PFSH: Medical History Atrial fibrillation and flutter Thrombocytopenia Acute kidney injury High anion gap metabolic acidosis Hypernatremia Diabetic keto-acidosis Diabetic ketoacidosis associated with type 1 diabetes mellitus Acute alteration in mental status Hypertension Diabetes Social History (Reviewed 05/13/24 @ 18:12 by LARISSA Morales Smoking and tobacco/nicotine status: heavy tobacco/nicotine user cigarettes Packs smoked per day: 1.5 Years cigarettes smoked: 16 Course Vital Signs: Vital signs: Vital Signs Temperature 98.3 F 11/07/23 15:51 Pulse Rate 79 11/07/23 18:23 Respiratory Rate 16 11/07/23 15:51 Blood Pressure 176/76 11/07/23 18:23 Pulse Oximetry 95 11/07/23 18:23 Oxygen Delivery Me thod Room Air 11/07/23 15:51 MDM - Extremity (Nontraumatic) Medical Decision Making Patient seen for right lower extremity pain and edema for the past couple months. Was sent by primary care for evaluation. Previously diagnosed with DVT of the right femoral vein in August, and ultrasound today revealed that this is stable. She is not reporting to me any breathing difficulties or palpitations or chest pains. I have low suspicion for pulmonary embolus at this time, and patient is currently on blood thinner. However due to the consistency of her pain and swelling, I did inform her to follow-up with primary care to discuss switching medications or possibly consult with vascular surgery. I did have a very thorough conversation with her in regards to reasons to return, such as if she has any of the aforementioned symptoms of shortness of breath or palpitat ions. She endorses understanding and will continue to take her medications as prescribed. All other questions and concerns addressed at this time and patient agrees with discharge home. Chart reviewed Medical Records I reviewed the patient's medical records. Lab Data I reviewed the patient's lab results. Radiology Impressions Venous Duplex 11/07/23 16:29 IMPRESSION: DVT involving the right common femoral vein and superficial femoral vein ADDENDUM: 11/07/23 0662 COMMENT: THIS REPORT CONTAINS FINDINGS THAT MAY BE CRITICAL TO PATIENT CARE. The exam findings were verbally communicated by me to JACOB SHAFFER via telephone conference at 5:54 PM CDT on 11/07/2023. The findings were acknowledged and understood. Discharge Plan Discharge Patient Disposition: Home Clinical Impression: Deep vein thrombosis of lower extremity Qualifiers: Affected thrombotic vein of extremity: femoral Chronicity: chronic Laterality: right Qualified Code(s): I82.511 - Chronic embolism and thrombosis of right femoral vein Condition: Stable Prescriptions: No Action Celebrex 200 mg Capsule 200 mg PO DAILY PRN (Reason: Pain) diclofenac sodium 50 mg Tablet,Delayed Release (Dr/Ec) 50 mg PO BID metoprolol tartrate 25 mg tablet 25 mg PO BID Xarelto 20 mg tablet 20 mg PO DAILY Qty: 30 0RF Rx Instructions: must administer with evening meal pioglitazone 15 mg tablet 15 mg PO DAILY metformin 500 mg tablet 500 mg PO BID gabapentin 100 mg capsule 100 mg PO TID insulin asp prt-insulin aspart [Novolog Mix 70-30FlexPen U-100] 100 unit/mL (70-30) insulin pen See Rx Instructions .ROUTE .COMPLEX Rx Instructions: Take 25 units subcutaneously in the morning and 30 units at lunch rosuvastatin 40 mg tablet 40 mg PO BEDTIME fenofibrate nanocrystallized 145 mg tablet 145 mg PO QPM insulin glargine [Lantus Solostar U-100 Insulin] 100 unit/mL (3 mL) insulin pen 60 unit SUBCUT BEDTIME Discharge Orders: Discharge ED (Routine); Ordered 11/07/23 Ordered By: Eddi Mclain Referrals: Jamie Kendall FNP [Primary Care Provider] - Discharge Diet: Usual diet Discharge Activity: Increase activity as tolerated Patient Instructions: Deep Vein Thrombosis (ED) Activity Restrictions/Additional Instructions: Continue taking your Xarelto and follow-up with primary care this week as discussed. If you develop any new or concerning symptoms, please return immediately for reevaluation. Specifically, monitoring for any breathing difficulties or chest pain. Coding Level of Care Code ED Emergency Medicine Medical Director for Marta Alvarez
[2023-11-07 18:23] VITALS: BP 176/76; PULSE 79; O2SAT 95
== END 2023-11-07 18:24 | disposition home or self-care (01) ==
PROVIDERS: Emergency Provider Physician Assistant; PCP Nurse Practitioner
DX: I82.511 Chronic embolism and thrombosis of right femoral vein (principal); Z79.84 Long term (current) use of oral hypoglycemic drugs; Z79.4 Long term (current) use of insulin; I10 Essential (primary) hypertension; E10.9 Type 1 diabetes mellitus without complications
CPT/HCPCS: 93971; 99284

== ENCOUNTER 2023-11-17 11:30 | Oncology outpatient (recurring) (ONCR) | payer MEDICAID, SELFPAY ==
[2023-11-17 13:14] LABS: Basophils # 0.1 10^3/uL (0.0-0.1); Basophils % 1.4 %; Eosinophils # 0.1 10^3/uL (0.0-0.8); Hematocrit 44.4 % (36-47); Lymphocytes # 1.7 10^3/uL (0.8-4.8); Lymphocytes % 29.5 %; Mean Corpuscular HGB Conc 30.9 g/dL (30-55); Mean Corpuscular Hemoglobin 30.1 pg (27-33); Mean Corpuscular Volume 97.6 fl (85-98); Mean Platelet Volume 9.8 fL (7.4-10.4); Monocytes # 0.6 10^3/uL (0.2-0.9); Monocytes % 9.7 %; Neutrophils # 3.36 10^3/uL (1.8-7.7); Neutrophils % 56.9 %; Nucleated Red Blood Cells % 0 %; Platelet Count 199 10^3/cmm (157-399); Red Blood Count 4.55 10^6/uL (3.85-5.65); Red Cell Distribution Width 15.4 % (12.1-15.1)
[2023-11-17 13:30] LABS: Alanine Aminotransferase 7 U/L (0-33); Albumin Level 3.7 g/dL (3.5-5.2); Alkaline Phosphatase 67 U/L (35-105); Aspartate Amino Transferase 17 U/L (0-32); Blood Urea Nitrogen 24 mg/dL (8-23); Calcium 9.1 mg/dL (8.5-10.5); Carbon Dioxide 30 mmol/L (22-29); Chloride 102 mmol/L (98-107); Globulin 3.3 g/dL (1.3-4.6); Glomerular Filtration Rate 41.5 mL/min (90-130); Glucose 238 mg/dL (65-115); Osmolality Calculated 304 mOsm/kg (285-295); Sodium 141 mmol/L (136-145); Total Bilirubin 0.3 mg/dL (0.15-1.2)
[2023-11-17 13:34] LABS: Anion Gap 13.1 (5-19); Potassium 4.1 mmol/L (3.5-5.1)
[2023-11-22 14:50] LABS: LMWH High Dose 50 IU/ML 0 % Release; LMWH Low Dose 0.1 IU/ML 0 % Release; LMWH Low Dose 1.0 IU/ML 0 % Release; LMWH SRA Result Negative (Negative)
[2023-11-23 00:44] LABS: Antithrombin III Antigen 88 % normal (80-120)
== END 2023-11-25 23:59 | disposition home or self-care (01) ==
PROVIDERS: PCP Nurse Practitioner; Visit Provider Internal Medicine Hematology & Oncology
DX: D75.829 Heparin-induced thrombocytopenia, unspecified (principal); I82.401 Acute embolism and thrombosis of unspecified deep veins of right lower extremity; F17.210 Nicotine dependence, cigarettes, uncomplicated; Z79.01 Long term (current) use of anticoagulants; I48.91 Unspecified atrial fibrillation
CPT/HCPCS: 36415; 80053; 85025; 85301; 86022; 99213